=== PATIENT | female | born 1945 | race Caucasian/White ===

== ENCOUNTER 2018-09-19 21:07 | Inpatient (IN) ==
[2018-09-20] MEDS ORDERED: Ondansetron 4 MG/2 ML VIAL IVP PRN (00:16)
[2018-09-20] MEDS: Metoprolol 100 MG TABLET PO SCH ×3 (00:33→20:33)
[2018-09-20] MEDS ORDERED: Acetaminophen IV 1,000 MG/100 ML INFUS..BTL IVPB ONE (01:19)
[2018-09-20] MEDS ORDERED: Naloxone 0.4 MG/ML INJ IVP PRN (05:33)
--- NOTE | 2018-09-20 05:56 | Internal Med History&Physical ---
Date of Encounter: 09/20/18 Time of Encounter: 05:00 Internal Medicine - H&P: HPI Chief complaint: Fall Admitted From: Hospital to Hospital Transfer Plans for Post Hospital Care: Home History of present illness: Ms. Pablo is a 73 year old female with past medical history significant for atrial fibrillation on Coumadin, pacemaker, hypertension, thyroid disease, GERD, osteoporosis, rheumatoid arthritis, urinary incontinence with InterStim system, and depression who presents as hospital transfer from [facility] in [place], [place] following a mechanical fall at home. Patient states she tripped over her shoes and landed on her left hip and had immediate pain. Denies striking her head, loss of consciousness, syncope, or presyncope. Has only been able to bear minimal weight on left lower extremity since fall. Sending ER obtained x-ray of left hip which showed no acute fracture. Also obtained CT of left hip which showed a nondisplaced subcapital fracture of the left femoral neck. Sending ER also obtained an x-ray of her chest which showed a normal chest. Sending ER also obtained a CT of her head which showed no acute intracranial abnormality and mild cerebral atrophy. Sending ER also obtained a CBC, BMP, CKMB, troponin, UA, which were unremarkable. Patient received morphine and fentanyl prior to transfer which she reports improved her pain. Currently denies any pain other than with movement. Currently denies any headache, numbness, tingling, chest pain, shortness of breath, cough, abdominal pain, bowel or bladder changes. Follows regularly with PCP, cardiology, rheumatology, and urology. Past Med Surg Social Fam HX - Past Medical History Medical history: atrial fibrillation, GERD, hypertension, osteoporosis, RA, thyroid disease, other Additional medical history: sick sinus syndrome, Psychiatric history: depression - Past Surgical History Surgical History: appendectomy, hysterectomy, knee replacement, pacemaker/AICD, other Additional surgical history: bilateral foot surgery, left thumb repair, right wrist surgery, bladder surgery, interstim therapy system - Social History Smoking Status: Never smoker Smokeless Tobacco Status: No Alcohol use: none Drug use: none - Family History Mother Hx Family Cardiac Disorders: Yes (heart disease) Hx Family Cancer: Yes (unspecified) Internal Medicine - H&P: Meds Amlodipine Besylate 2.5 mg PO DAILY 02/14/16 [History] Aspirin 81 mg PO DAILY 02/14/16 [History] Azathioprine [Imuran] 50 mg PO TID 02/14/16 [History] BuPROPion SR (12 HR) [Wellbutrin SR] 100 mg PO DAILY 02/14/16 [History] Diltiazem HCl [Cartia Xt] 240 mg PO DAILY 02/14/16 [History] Esomeprazole Magnesium [Nexium] 40 mg PO DAILY 02/14/16 [History] Fluticasone Propionate Nasal [Flonase] 2 spr NS DAILY PRN 02/14/16 [History] Gabapentin [Neurontin] 300 mg PO BID 02/14/16 [History] Leflunomide [Arava] 10 mg PO DAILY 02/14/16 [History] Levothyroxine [Synthroid] 50 mcg PO 0630 02/14/16 [History] Metoprolol [Lopressor] 100 mg PO BID 02/14/16 [History] Nitroglycerin 0.4 mg SL Q5MIN PRN 02/14/16 [History] Ropinirole HCl 2 mg PO HS 02/14/16 [History] TraZODone 50 mg PO HS 02/14/16 [History] Warfarin Sodium [Coumadin] 6 mg PO Q48H 02/14/16 [History] Warfarin [Coumadin] 4 mg PO Q48H 02/14/16 [History] predniSONE [Prednisone] 5 mg PO DAILY 02/14/16 [History] traMADol [Ultram] 50 mg PO Q6HR PRN #15 tablet 02/14/16 [Rx] Allergy/AdvReac Type Severity Reaction Status Date / Time azithromycin [From Zithromax] AdvReac See Verified 07/12/18 13:08 Comments codeine AdvReac See Verified 07/12/18 13:08 Comments dimethicone [From Dermatix] AdvReac See Verified 07/12/18 13:08 Comments levofloxacin [From Levaquin] AdvReac See Verified 07/12/18 13:08 Comments oxycodone [From Percocet] AdvReac See Verified 07/12/18 13:08 Comments Penicillins AdvReac See Verified 07/12/18 13:08 Comments pentazocine [From Talwin] AdvReac See Verified 07/12/18 13:08 Comments propoxyphene [From Darvon] AdvReac See Verified 03/09/19 13:08 Comments silicon dioxide AdvReac See Verified 07/12/18 13:08 [From Dermatix] Comments All Systems PM: A 10-system review of systems was performed and is negative for pertinent findings except as documented above in the HPI. - Constitutional Vitals: Temp Pulse Resp BP Pulse Ox 99.0 F 69 15 162/79 95 09/20/18 05:03 09/20/18 05:03 09/20/18 05:03 09/20/18 05:03 09/20/18 05:03 Exam: General: Alert and oriented. Skin:Normal color, no rash, no lesions. HEENT:Pupils equal, round and reactive. Cardiovascular:Chronic heart murmur noted. No JVD. Pulse regular. Lungs:Normal breath sounds, no wheezes or crackles. Abdomen:Soft, non-tender, no rigidity. Extremities:Chronic RA joint deformities noted. Left hip tender to palpation. Distal PMS intact. Neurological:Normal cognition and motor skills. Pulses:Carotid and radial pulses normal +2. Rest of the physical exam is non contributory. - Assessment and Plan (1) Fall Current Visit: Yes Status: Acute Assessment and plan: Mechanical fall at home. Denies any injury besides left hip. Fall precautions ordered. Qualifiers: Encounter type: initial encounter Qualified Code(s): W19.XXXA - Unspecified fall, initial encounter (2) Fracture of femoral neck, left Current Visit: Yes Status: Acute Assessment and plan: Sending ER left hip xray shows no acute fracture or dislocation. Sending ER left hip CT shows nondisplaced subcapital fracture of the left femoral neck. Sending ER consulted media relations specialist ortho who agrees to see in consult, ortho consult ordered. Pain control with PRN pain medications. NPO. Qualifiers: Encounter type: initial encounter Qualified Code(s): S72.002A - Fracture of unspecified part of neck of left femur, initial encounter for closed fracture (3) Pacemaker Current Visit: Yes Status: Chronic Assessment and plan: Chronic for what she describes as "pauses". Will need cardio clearance for surgery. Cardiology consult ordered, will need called later this a.m. (4) Atrial fibrillation Current Visit: Yes Status: Chronic Assessment and plan: Chronic on coumadin. PT/INR ordered. Qualifiers: Atrial fibrillation type: unspecified Qualified Code(s): I48.91 - Unspecified atrial fibrillation - Time Spent With Patient Total time spent is greater than 50% in coordination of care (as documented) at patient's floor/unit and/or counseling patient:
[2018-09-20] MEDS ORDERED: *HR* FentaNYL (PF) 100 MCG/2 ML VIAL IVP PRN (05:59)
[2018-09-20 06:49] LABS: Basophils % 0.6 %; Eosinophils # 0.1 K/mcL (0.0-0.6); Eosinophils % 2.1 %; Hematocrit 37.5 % (35.3-44.9); Immature Granulocytes % 0.4 % (0-4); Lymphocytes # 0.6 K/mcL (0.6-4.6); Lymphocytes % 11.2 %; Mean Corpuscular Hemoglobin 30.7 pg (28.0-33.3); Mean Corpuscular Volume 95.9 fL (83.0-100.0); Mean Platelet Volume 9.8 fL (9.4-12.4); Monocytes # 0.5 K/mcL (0.0-1.3); Monocytes % 9.8 %; Neutrophils # 3.9 K/mcL (1.6-8.9); Platelet Count 215 K/mcL (140-400); Red Blood Count 3.91 M/mcL (3.82-4.97); Red Cell Distribution Width 14.6 % (11.5-14.5); Segmented Neutrophils % 75.9 %
[2018-09-20 06:54] LABS: INR 1.4; Prothrombin Time 15.5 Seconds (9.4-12.1)
[2018-09-20 07:09] LABS: BUN/Creatinine Ratio 24 (6-26); Blood Urea Nitrogen 11 mg/dL (8-23); Calcium 9.3 mg/dL (8.6-10.3); Carbon Dioxide 29 mEq/L (23-29); Chloride 102 mEq/L (98-107); Glucose 114 mg/dL (70-105); Osmolality,Calculated 286 (280-300); Potassium 3.8 mEq/L (3.5-5.1); Sodium 138 mEq/L (136-145); eGFR For Non-African Americans > 60 (> 60)
[2018-09-20] MEDS ORDERED: *HR* HYDROcodone/Acet 7.5/325 mg TABLET PO PRN (09:58)
[2018-09-20] MEDS ORDERED: traMADol 50 MG TABLET PO PRN (09:58)
[2018-09-20] MEDS ORDERED: *HR* Enoxaparin 60 MG/0.6 ML SYRINGE SQ ONE (10:18)
--- NOTE | 2018-09-20 10:24 | Event Note ---
Date of Encounter: 09/20/18 Time of Encounter: 08:30 Ms Pablo has pmhx Afib on coumadin, PM/AICD w SSS, HTN, thyroid disease, RA on daily steroid and immunosuppressant, thyroid disease. She is admitted with mechanical fall and subsequent left hip fracture requiring surgical intervention. awake, at bedside. She has left hip pain worse with any movement. pain medication makes tolerable. She notes she goes in and out of afib, gets palpitations at time, but none now. no cp, pressure or sob. She denies any presynocpe or syncope. No numbness/tingling in leg or change in warmth of ext. She does not wear O2 at home. She knows she takes 5mg Prednisone for RA daily and lopressor and cardizem, but doesn't know all meds/doses. to go home this morning and get list for staff to update med rec. I have d/w Ortho attending and plan is cardiac eval today and OR with Ortho in am. Pt and family aware. She transferred from [facility] and I have reviewed records sent from hospital BP there 160-170/70-80s. HR 60s. EKG there reviewed and hard to discern P waves, but r-r looks regular, suspect was in rate controlled afib there. No TWI or st dep/elev. 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 No acute ICA CXR neg. CT LLE non displaced fx femoral neck cbc unremarkable, inr 1.4, trop neg, ua neg for infection ekg this morning done and reviewed, sinus rhythm with first degree aVB, no signs of ischemia gen- alert, awake,appears stated age eyes- pupils equal round , no conjunctival pallor cv- reg rate and rhythm, normal s1,s2, no murmurs appreciated, no le edema, no jvd, warm extremities lungs- ctabl, no wheezing, rhonchi or crackles, normal resp effort on o2 nc abd- soft, non tender, non distended, + bs neuro- AAOx3, CN grossly intact, no focal deficits, sensation bl le intact and equal Left Hip fracture -d/w Dr Blanca and plan for OR tomorrow -requires cardiac eval pre op and consultation placed -prn pain control, bed rest Afib on coumadin Subtherapeutic INR 1.4 Currently NSR on tele/exam/ekg, afib rate controlled at OSH -hold warfarin, will give 1mg/kg lovenox this morning, no evening dose, in prep for OR -resume warfarin post op and will order at that time -confirm home meds, BB ordered, confirm cardizem dosing, cont tele, monitor lytes HTN- awaiting home med confirmation, BB ordered, cont to monitor -she should receive BB pre op in am and this is noted in orders RA- on 5mg PO pred daily and continued, she should receive this pre op in am and this is noted in orders, awaiting home meds confirmation from Thyroid disease- awaiting synthroid dose vte ppx lovenox
--- NOTE | 2018-09-20 10:58 | Orthopedic Consult Note ---
Date of Encounter: 09/20/18 Time of Encounter: 10:57 Assessment and Plan (1) Fracture of femoral neck, left Current Visit: Yes Status: Acute After discussing the pros and cons of treatment options including non-operative and operative intervention, the patient has elected to proceed with percutaneous pinning of the left hip for pain control and early ambulation at this time. The risks and benefits of the procedure were fully explained in detail, including but not limited to the risk of infection, neurovascular injury, continued pain or stiffness, failure of surgery, reinjury, or need for additional surgery, DVT, PE, general risks of anesthesia and loss of limb or life. No guarantees were given or implied and all questions were answered. The patient understands all the risks and does wish to proceed with written consent. Surgery will be scheduled in a timely manner pending medical clearance. Qualifiers: Encounter type: initial encounter Fracture type: closed Qualified Code(s): S72.002A - Fracture of unspecified part of neck of left femur, initial encounter for closed fracture History of Present Illness HPI: Ms. Pablo is a 73 year old female with past medical history significant for atrial fibrillation on Coumadin, pacemaker, hypertension, thyroid disease, GERD, osteoporosis, rheumatoid arthritis, urinary incontinence with InterStim system, and depression who presents as hospital transfer from [facility] in [place], [place] following a mechanical fall at home. Patient states she tripped over her shoes and landed on her left hip and had immediate pain. Denies striking her head, loss of consciousness, syncope, or presyncope. XR showed a nondisplaced subcapital fracture of the left femoral neck. Denies any headache, numbness, tingling, chest pain, shortness of breath, or LOC. Transferred for definitive management. Past Med Surg Social Fam HX - Past Medical History Medical history: atrial fibrillation, GERD, hypertension, osteoporosis, RA, thyroid disease, other Additional medical history: sick sinus syndrome, Psychiatric history: depression - Past Surgical History Surgical History: appendectomy, hysterectomy, knee replacement, pacemaker/AICD, other Additional surgical history: bilateral foot surgery, left thumb repair, right wrist surgery, bladder surgery, interstim therapy system - Social History Smoking Status: Never smoker Smokeless Tobacco Status: No Alcohol use: none Drug use: none - Family History Mother Hx Family Cardiac Disorders: Yes (heart disease) Hx Family Cancer: Yes (unspecified) Medications and Allergies Amlodipine Besylate 2.5 mg PO DAILY 02/14/16 [History] Aspirin 81 mg PO DAILY 02/14/16 [History] Azathioprine [Imuran] 50 mg PO TID 02/14/16 [History] BuPROPion SR (12 HR) [Wellbutrin SR] 100 mg PO DAILY 02/14/16 [History] Diltiazem HCl [Cartia Xt] 240 mg PO DAILY 02/14/16 [History] Esomeprazole Magnesium [Nexium] 40 mg PO DAILY 02/14/16 [History] Fluticasone Propionate Nasal [Flonase] 2 spr NS DAILY PRN 02/14/16 [History] Gabapentin [Neurontin] 300 mg PO BID 02/14/16 [History] Leflunomide [Arava] 10 mg PO DAILY 02/14/16 [History] Levothyroxine [Synthroid] 50 mcg PO 0630 02/14/16 [History] Metoprolol [Lopressor] 100 mg PO BID 02/14/16 [History] Nitroglycerin 0.4 mg SL Q5MIN PRN 02/14/16 [History] Ropinirole HCl 2 mg PO HS 02/14/16 [History] TraZODone 50 mg PO HS 02/14/16 [History] Warfarin Sodium [Coumadin] 6 mg PO Q48H 02/14/16 [History] Warfarin [Coumadin] 4 mg PO Q48H 02/14/16 [History] predniSONE [Prednisone] 5 mg PO DAILY 02/14/16 [History] traMADol [Ultram] 50 mg PO Q6HR PRN #15 tablet 02/14/16 [Rx] Allergy/AdvReac Type Severity Reaction Status Date / Time azithromycin [From Zithromax] AdvReac See Verified 07/12/18 13:08 Comments codeine AdvReac See Verified 07/12/18 13:08 Comments dimethicone [From Dermatix] AdvReac See Verified 07/12/18 13:08 Comments levofloxacin [From Levaquin] AdvReac See Verified 07/12/18 13:08 Comments oxycodone [From Percocet] AdvReac See Verified 07/12/18 13:08 Comments Penicillins AdvReac See Verified 07/12/18 13:08 Comments pentazocine [From Talwin] AdvReac See Verified 07/12/18 13:08 Comments propoxyphene [From Darvon] AdvReac See Verified 07/12/18 13:08 Comments silicon dioxide AdvReac See Verified 07/12/18 13:08 [From Dermatix] Comments All Systems Reviewed: The remainder of the systems were reviewed and are negative except as noted in the HPI Physical Exam - Constitutional Vitals: Temp Pulse Resp BP Pulse Ox 98.2 F 65 15 178/79 97 09/20/18 10:27 09/20/18 10:27 09/20/18 10:27 09/20/18 10:27 09/20/18 10:27 Exam: Consult Exam: Constitutional -Vitals reviewed -The patient is well developed and well nourished. -Mood is pleasant. -The patient is well groomed. Psychiatric -The patient is fully alert and oriented x 3. Respiratory: -Respiratory effort normal Abdomen: -Soft abdomen -Non tender -Non distended: Left upper extremity: -No deformities. The overlying skin is intact. No obvious signs of acute trauma. -No tenderness to palpation throughout. -No significant pain with passive motion of the shoulder, elbow, wrist, and fingers within the limits of the bed. -Able to make an "OK" sign, cross the index and long fingers, and extend the th umb. -Sensation grossly intact to light touch throughout the median, radial, and ulnar distributions. -Radial pulse is present; Fingers have good capillary refill. Right upper extremity: -No deformities. The overlying skin is intact. No obvious signs of acute trauma. -No tenderness to palpation throughout. -No significant pain with passive motion of the shoulder, elbow, wrist, and fingers within the limits of the bed. -Able to make an "OK" sign, cross the index and long fingers, and extend the thumb. -Sensation grossly intact to light touch throughout the median, radial, and ulnar distributions. -Radial pulse is present; Fingers have good capillary refill. Left lower extremity: -No deformities. The overlying skin is intact. Tenderness palpation over lateral hip -Pain with logroll and internal rotation. -Able to dorsiflex and plantarflex the ankle and toes. -Sensation is grossly intact to light touch throughout the sural, saphenous, superficial peroneal, and deep peroneal distributions. -Toes have good capillary refill. Right lower extremity: -No deformities. The overlying skin is intact. No obvious signs of acute trauma. -No tenderness to palpation throughout. -No pain with passive motion of the hip, knee, ankle, and toes within the limits of the bed. -No pain with axial loading of the thigh. -Able to dorsiflex and plantarflex the ankle and toes. -Sensation is grossly intact to light touch throughout the sural, saphenous, superficial peroneal, and deep peroneal distributions. -Toes have good capillary refill. Results - Labs Result Diagrams: 09/20/18 05:59 09/20/18 05:59 Labs: Abnormal lab results RDW 14.6 % (11.5-14.5) H 09/20/18 05:59 PT 15.5 Seconds (9.4-12.1) H 09/20/18 05:59 0.46 mg/dL (0.60-1.20) L 09/20/18 05:59 Glucose 114 mg/dL (70-105) H 09/20/18 05:59 H & H 09/20/18 Range/Units 05:59 Hgb 12.0 (11.5-15.4) g/dL Hct 37.5 (35.3-44.9) % All other labs normal. - Diagnostic results Hip x-ray: report reviewed, image reviewed (Valgus impacted left femoral neck fracture) Consult Discharge Plan - Plan Referrals: NONE,PCP [Primary Care Provider] -
[2018-09-20] MEDS: *HR* HYDROcodone/Acet 7.5/325 mg TABLET PO PRN ×3 (11:11→22:18)
[2018-09-20] MEDS: predniSONE 5 MG TABLET PO SCH (11:11)
--- NOTE | 2018-09-20 11:16 | Cardiology Consult Note ---
Date of Encounter: 09/20/18 Time of Encounter: 10:30 Assessment and Plan (1) Fracture of femoral neck, left Current Visit: Yes Status: Acute Per cardiology: -Admitted after fall with fracture. -management per primary and orthopedic services. Qualifiers: Encounter type: initial encounter Fracture type: closed Qualified Code(s): S72.002A - Fracture of unspecified part of neck of left femur, initial encounter for closed fracture (2) Preop cardiovascular exam Current Visit: Yes Status: Acute Cardiology: -Preop risk assessment for orthopedic surgery. -Denies chest pain, shortness of breath, or increased fatigue. -ECG with SR. -TTE 05/2018 with LVEF preserved, mild diastolic dysfunction, mild MR, mild- moderate TR, no wall motion abnormalities. -LHC 2009 with normal coronaries. -Known PAF on coumadin for anticoagulation. -Poor functional capacity. -With co-morbidities and poor functional capacity, patient would be at intermediate risk for having cardiovascular complications in the edward-operative time frame. -Ok to hold coumadin for surgery (no history CVA/DVT/PE). Recommend resuming once ok with orthopedic surgery. (3) Pacemaker Current Visit: Yes Status: Chronic Per cardiology: -Known pacemaker for sick sinus syndrome. -Last device check 04/2018 with normal functioning pacemaker, 96 mode switches (known a.fib). (4) Afib Current Visit: No Status: Chronic Per cardiology: -Known PAF. -ON BB. -Currently SR. -On coumadin in outpatient setting for anticoagulation. -Continue BB. Resume coumadin when ok with orthopedic surgery. Qualifiers: Atrial fibrillation type: paroxysmal Qualified Code(s): I48.0 - Paroxysmal atrial fibrillation Discussion w patient/family: The assessment and plan as outlined above was discussed with the patient who e xpressed understanding and agreement. All questions were answered. Thank you for involving us in the care of your patient. Please call with any questions. Discussed and reviewed with . History of Present Illness Consult date: 09/20/18 Requesting physician: Rhys Mensah Consult reason: preop Chief complaint: fall History of present illness: Ms. Pablo is a 73 year old female with a relevant past medical history of PAF, SSS s/p pacemaker, hypothyroidism, RA, GERD, depression, HTN, anxiety, who presented to [facility] with mechanical fall at home. Patient noted to have hip fracture and cardiology consulted for preop risk assessment. Patient denies chest pain. Denies shortness of breath. Denies increased fatigue. States she does all of the housework at home, however states she would not be able to climb a flight of stairs or walk two city blocks. Past Med Surg Social Fam HX - Past Medical History Attestation: Yes The following information was validated with the patient. Source: patient, old records reviewed Medical history: atrial fibrillation, GERD, hypertension, osteoporosis, RA, thyroid disease, other Additional medical history: sick sinus syndrome, Psychiatric history: depression - Past Surgical History Surgical History: appendectomy, hysterectomy, knee replacement, pacemaker/AICD, other Additional surgical history: bilateral foot surgery, left thumb repair, right wrist surgery, bladder surgery, interstim therapy system - Social History Smoking Status: Never smoker Smokeless Tobacco Status: No Alcohol use: none Drug use: none - Family History Mother Hx Family Cardiac Disorders: Yes (heart disease) Hx Family Cancer: Yes (unspecified) Medications and Allergies Amlodipine Besylate 2.5 mg PO DAILY 02/14/16 [History] Aspirin 81 mg PO DAILY 02/14/16 [History] Azathioprine [Imuran] 50 mg PO TID 02/14/16 [History] BuPROPion SR (12 HR) [Wellbutrin SR] 100 mg PO DAILY 02/14/16 [History] Diltiazem HCl [Cartia Xt] 240 mg PO DAILY 02/14/16 [History] Esomeprazole Magnesium [Nexium] 40 mg PO DAILY 02/14/16 [History] Fluticasone Propionate Nasal [Flonase] 2 spr NS DAILY PRN 02/14/16 [History] Gabapentin [Neurontin] 300 mg PO BID 02/14/16 [History] Leflunomide [Arava] 10 mg PO DAILY 02/14/16 [History] Levothyroxine [Synthroid] 50 mcg PO 0630 02/14/16 [History] Metoprolol [Lopressor] 100 mg PO BID 02/14/16 [History] Nitroglycerin 0.4 mg SL Q5MIN PRN 02/14/16 [History] Ropinirole HCl 2 mg PO HS 02/14/16 [History] TraZODone 50 mg PO HS 02/14/16 [History] Warfarin Sodium [Coumadin] 6 mg PO Q48H 10/11/16 [History] Warfarin [Coumadin] 4 mg PO Q48H 02/14/16 [History] predniSONE [Prednisone] 5 mg PO DAILY 02/14/16 [History] traMADol [Ultram] 50 mg PO Q6HR PRN #15 tablet 02/14/16 [Rx] Allergy/AdvReac Type Severity Reaction Status Date / Time azithromycin [From Zithromax] AdvReac See Verified 07/12/18 13:08 Comments codeine AdvReac See Verified 07/12/18 13:08 Comments dimethicone [From Dermatix] AdvReac See Verified 07/12/18 13:08 Comments levofloxacin [From Levaquin] AdvReac See Verified 07/12/18 13:08 Comments oxycodone [From Percocet] AdvReac See Verified 07/12/18 13:08 Comments Penicillins AdvReac See Verified 07/12/18 13:08 Comments pentazocine [From Talwin] AdvReac See Verified 07/12/18 13:08 Comments propoxyphene [From Darvon] AdvReac See Verified 07/12/18 13:08 Comments silicon dioxide AdvReac See Verified 07/12/18 13:08 [From Dermatix] Comments All Systems Review: The remainder of the systems were reviewed and are negative - Constitutional Constitutional: frequent falls - Cardiovascular Cardiovascular: as per HPI Physical Examination Vital Signs, Last 4 Hours Temp Pulse Resp BP Pulse Ox 09/20/18 10:27 98.2 F 65 15 178/79 97 General: Conversant, No Apparent Distress HEENT: Atraumatic, Normocephaly, Mucus Membranes Moist Neck: No JVD, Normal carotid pulses Cardiac: Reg Rate and Rhythm, Normal S1 and S2, No Murmur Lungs: Normal Breath Sounds, No Wheeze, Rales, Rhonchi Neuro: Alert and responsive, No focal deficits noted Abdomen: Soft, Non-Tender Skin: No rashes noted on visualized skin Musculoskeletal: No Chest Wall Tenderness Extremities: No Clubbing, No Cyanosis, No Edema, Normal Pulses Results 09/20/18 05:59 09/20/18 05:59 Lab Results Active Medications Hydrocodone Bitart/Acetaminophen ([place] 7.5-325 Mg) 1 tab PO Q4H PRN PRN Reason: Severe Pain Stop: 03/22/19 09:59 Last Admin: 09/20/18 11:11 Dose: 1 tab Documented by: Cyclobenzaprine HCl (Flexeril) 5 mg PO TID PRN PRN Reason: spasms Stop: 03/22/19 09:01 Last Admin: 09/20/18 08:45 Dose: 5 mg Documented by: Metoprolol Tartrate (Lopressor) 100 mg PO BID [facility] Stop: 03/22/19 00:20 Last Admin: 09/20/18 08:45 Dose: 100 mg Documented by: Naloxone HCl (Narcan) 0.4 mg IVP Q2MPRN PRN PRN Reason: SEE COMMENTS Stop: 03/22/19 05:34 Ondansetron HCl (Zofran) 4 mg IVP Q6HR PRN; Protocol PRN Reason: Nausea And Vomiting Stop: 03/22/19 00:17 Last Admin: 09/20/18 00:33 Dose: 4 mg Documented by: Prednisone (Prednisone) 5 mg PO DAILY [facility] Stop: 03/22/19 09:31 Last Admin: 09/20/18 11:11 Dose: 5 mg Documented by: Tramadol HCl (Ultram) 50 mg PO QID PRN PRN Reason: Moderate Pain Stop: 03/22/19 09:59 Laboratory Tests 09/20/18 09/20/18 09/20/18 05:59 05:59 05:59 Hgb 12.0 INR 1.4 Creatinine 0.46 L - Imaging and Cardiology Chest Xray: report reviewed Echo: report reviewed - EKG Interpretation EKG results cardiology: personally reviewed (ECG with SR, HR 63.), other (Telemetry reviewed with average HR previous 12 hours noted to be 62, SR.) Consult Discharge Plan - Plan Referrals: NONE,PCP [Primary Care Provider] -
[2018-09-20] MEDS: Diltiazem CD (24hr) 180 MG CAPSULE PO SCH (16:16)
--- NOTE | 2018-09-20 17:38 | Internal Med Progress Note ---
<Jose Marshall - Last Filed: 09/20/18 17:35> Hospitalist Progress Note - Encounter Date of Encounter: 09/20/18 Time of Encounter: 09:33 - Subjective Interval History: Patient seen and examined at bedside this morning. Admitted for left hip fracture after mechanical fall. She reports that she is still in pain and that her current pain medicine does help but does not last long. Denies numbness, tingling, foot pain, chest pains, SOB. - Exam Vitals: Temp Pulse Resp BP Pulse Ox 98.8 F 66 16 181/77 97 09/20/18 15:50 09/20/18 15:50 09/20/18 15:50 09/20/18 15:50 09/20/18 15:50 Exam: Gen.: Vitals noted. No acute distress. AAOx3, resting comfortably in bed. HEENT: PERRL/EOMI, oropharynx clear, Normocephalic, atraumatic, MMM Cardiac: RRR, no murmur, +S1/S2, No BLE edema Pulmonary: CTA bilaterally, no wheezes, rales or rhonchi, equal chest expansion, unlabored breathing Abdomen: soft, nontender, BS noted, no guarding, no palpable HSM Skin: warm and dry, no visible lesions. No visible lesion around hip, no ecchymosis. MSK: ROM intact, no joint swelling noted, gait no assessed while in bed. Non tender calf or clubbing. Distal pulses present Neuro: A&Ox3, moves all extremities, no focal deficits, sensation intact Psych: Appropriate mood and behavior, AOx3 - Assessment and Plan (1) Fracture of femoral neck, left Current Visit: Yes Status: Acute Assessment and Plan: Outside ER left hip xray shows no acute fracture or dislocation. -left hip CT shows nondisplaced subcapital fracture of the left femoral neck. - ortho who agrees to see in consult, ortho consult ordered. - Cardiology consulted for risk stratification, will see today - EKG reviewed without evidence of ischemia. - Patient unsure on how many METS she can achieve at baseline. - Most recent Echo in 05/2017- HFpEF, mild valvular abnormalities Plan - Tenative surgery tomorrow - Pain control with PRN pain medications. - NPO midnight. (2) Fall Current Visit: Yes Status: Acute Assessment and Plan: Mechanical fall at home. Denies any injury besides left hip. Did not hit head No signs of syncope. (3) Atrial fibrillation Current Visit: Yes Status: Chronic Assessment and Plan: paroxysmal on coumadin. s/p ablation in August 2018 INR subtherapeutic at 1.4 this morning Currently rate controlled in 60s Cardiology consulted Plan Continue BB Resume coumadin when OK with ortho Continue to monitor (4) Pacemaker Current Visit: Yes Status: Chronic Assessment and Plan: Chronic for what she describes as "pauses", up to 6 seconds - Dx of sick sinus syndrome - Device check in April 2018 and functioning per Cardiology (5) Rheumatoid arthritis Current Visit: Yes Status: Chronic Assessment and Plan: On home prednisone. Will continue here (6) Hypothyroid Current Visit: Yes Status: Chronic Assessment and Plan: continue home synthroid DVT Prophylaxis: resume coumadin once cleared by ortho Scds - Time Spent with Patient Total time spent is greater than 50% in coordination of care (as documented) at patient's floor/unit and/or counseling patient: Internal Medicine: Result - Labs CBC & Chem 7: 09/20/18 05:59 09/20/18 05:59 Labs: Short CBC 09/20/18 Range/Units 05:59 WBC 5.2 (4.3-11.1) K/mcL Hgb 12.0 (11.5-15.4) g/dL Hct 37.5 (35.3-44.9) % Plt Count 215 (140-400) K/mcL Neutrophils # 3.9 (1.6-8.9) K/mcL BMP 09/20/18 05:59 Sodium 138 Potassium 3.8 Chloride 102 Carbon Dioxide 29 BUN 11 Creatinine 0.46 L Glucose 114 H Calcium 9.3 - ABG Interpretation ABG results: PT/INR, D-dimer PT 15.5 Seconds (9.4-12.1) H 09/20/18 05:59 Consult Discharge Plan - Plan Referrals: NONE,PCP [Primary Care Provider] - <Belkis Piper - Last Filed: 09/20/18 17:48> Hospitalist Progress Note - Encounter Date of Encounter: 09/20/18 - Exam Vitals: Temp Pulse Resp BP Pulse Ox 98.8 F 66 16 181/77 97 09/20/18 15:50 09/20/18 15:50 09/20/18 15:50 09/20/18 15:50 09/20/18 15:50 - Assessment and Plan (1) Fall Current Visit: Yes Status: Acute (2) Fracture of femoral neck, left Current Visit: Yes Status: Acute (3) Atrial fibrillation Current Visit: Yes Status: Chronic (4) Pacemaker Current Visit: Yes Status: Chronic (5) Rheumatoid arthritis Current Visit: Yes Status: Chronic (6) Hypothyroid Current Visit: Yes Status: Chronic - Time Spent with Patient Total time spent is greater than 50% in coordination of care (as documented) at patient's floor/unit and/or counseling patient: Internal Medicine: Result - Labs CBC & Chem 7: 09/20/18 05:59 09/20/18 05:59 Labs: Short CBC 09/20/18 Range/Units 05:59 WBC 5.2 (4.3-11.1) K/mcL Hgb 12.0 (11.5-15.4) g/dL Hct 37.5 (35.3-44.9) % Plt Count 215 (140-400) K/mcL Neutrophils # 3.9 (1.6-8.9) K/mcL BMP 09/20/18 05:59 Sodium 138 Potassium 3.8 Chloride 102 Carbon Dioxide 29 BUN 11 Creatinine 0.46 L Glucose 114 H Calcium 9.3 - ABG Interpretation ABG results: PT/INR, D-dimer PT 15.5 Seconds (9.4-12.1) H 09/20/18 05:59 - Attending Attestation Ms Pablo has pmhx Afib on coumadin, PM/AICD w SSS, HTN, thyroid disease, RA on daily steroid and immunosuppressant, thyroid disease. She is admitted with mechanical fall and subsequent left hip fracture requiring surgical intervention. awake, at bedside. She has left hip pain worse with any movement. pain medication makes tolerable. She notes she goes in and out of afib, gets palpitations at time, but none now. no cp, pressure or sob. She denies any presynocpe or syncope. No numbness/tingling in leg or change in warmth of ext. She does not wear O2 at home. She knows she takes 5mg Prednisone for RA daily and lopressor and cardizem, but doesn't know all meds/doses. to go home this morning and get list for staff to update med rec. I have d/w Ortho attending and plan is cardiac eval today and OR with Ortho in am. Pt and family aware. She transferred from [place] and I have reviewed records sent from hospital BP there 160-170/70-80s. HR 60s. EKG there reviewed and hard to discern P waves, but r-r looks regular, suspect was in rate controlled afib there. No TWI or st dep/elev. 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 No acute ICA CXR neg. CT LLE non displaced fx femoral neck cbc unremarkable, inr 1.4, trop neg, ua neg for infection ekg this morning done and reviewed, sinus rhythm with first degree aVB, no signs of ischemia gen- alert, awake,appears stated age eyes- pupils equal round , no conjunctival pallor cv- reg rate and rhythm, normal s1,s2, no murmurs appreciated, no le edema, no jvd, warm extremities lungs- ctabl, no wheezing, rhonchi or crackles, normal resp effort on o2 nc abd- soft, non tender, non distended, + bs neuro- AAOx3, CN grossly intact, no focal deficits, sensation bl le intact and equal Left Hip fracture -d/w Dr Blanca and plan for OR tomorrow -requires cardiac eval pre op and consultation placed -prn pain control, bed rest Afib on coumadin Subtherapeutic INR 1.4 Currently NSR on tele/exam/ekg, afib rate controlled at OSH -hold warfarin, will give 1mg/kg lovenox this morning, no evening dose, in prep for OR -resume warfarin post op and will order at that time -confirm home meds, BB ordered, confirm cardizem dosing, cont tele, monitor lytes HTN- awaiting home med confirmation, BB ordered, cont to monitor -she should receive BB pre op in am and this is noted in orders RA- on 5mg PO pred daily and continued, she should receive this pre op in am and this is noted in orders, awaiting home meds confirmation from Thyroid disease- awaiting synthroid dose vte ppx lovenox <Jose Marshall - Last Filed: 09/20/18 17:35> (1) Fracture of femoral neck, left Qualifiers: Encounter type: initial encounter Fracture type: closed Qualified Code(s): S72.002A - Fracture of unspecified part of neck of left femur, initial encounter for closed fracture (2) Fall Qualifiers: Encounter type: initial encounter Qualified Code(s): W19.XXXA - Unspecified fall, initial encounter (3) Atrial fibrillation Qualifiers: Atrial fibrillation type: unspecified Qualified Code(s): I48.91 - Unspecified atrial fibrillation (5) Rheumatoid arthritis Qualifiers: Rheumatoid arthritis location: unspecified site Rheumatoid factor presence: unspecified presence Qualified Code(s): M06.9 - Rheumatoid arthritis, unspecified (6) Hypothyroid Qualifiers: Hypothyroidism type: unspecified Qualified Code(s): E03.9 - Hypothyroidism, unspecified <Belkis Piper - Last Filed: 09/20/18 17:48> (1) Fall Qualifiers: Encounter type: initial encounter Qualified Code(s): W19.XXXA - Unspecified fall, initial encounter (2) Fracture of femoral neck, left Qualifiers: Encounter type: initial encounter Fracture type: closed Qualified Code(s): S72.002A - Fracture of unspecified part of neck of left femur, initial encounter for closed fracture (3) Atrial fibrillation Qualifiers: Atrial fibrillation type: unspecified Qualified Code(s): I48.91 - Unspecified atrial fibrillation (5) Rheumatoid arthritis Qualifiers: Rheumatoid arthritis location: unspecified site Rheumatoid factor presence: unspecified presence Qualified Code(s): M06.9 - Rheumatoid arthritis, unspecified (6) Hypothyroid Qualifiers: Hypothyroidism type: unspecified Qualified Code(s): E03.9 - Hypothyroidism, unspecified
[2018-09-20] MEDS ORDERED: traZODone 50 MG TABLET PO SCH (21:00)
[2018-09-21 02:58] LABS: Basophils % 0.7 %; Eosinophils # 0.2 K/mcL (0.0-0.6); Eosinophils % 2.7 %; Hematocrit 42.6 % (35.3-44.9); Immature Granulocytes % 0.7 % (0-4); Lymphocytes # 0.7 K/mcL (0.6-4.6); Lymphocytes % 11.1 %; Mean Corpuscular HGB Conc 31.9 g/dL (31.6-35.5); Mean Corpuscular Hemoglobin 30.7 pg (28.0-33.3); Mean Corpuscular Volume 96.2 fL (83.0-100.0); Mean Platelet Volume 9.9 fL (9.4-12.4); Monocytes # 0.8 K/mcL (0.0-1.3); Monocytes % 13.5 %; Neutrophils # 4.2 K/mcL (1.6-8.9); Platelet Count 227 K/mcL (140-400); Red Blood Count 4.43 M/mcL (3.82-4.97); Red Cell Distribution Width 14.6 % (11.5-14.5); Segmented Neutrophils % 71.3 %
[2018-09-21 03:01] LABS: Hemoglobin 13.6 g/dL (11.5-15.4)
[2018-09-21 03:07] LABS: INR 1.5; Prothrombin Time 16.6 Seconds (9.4-12.1)
[2018-09-21 03:20] LABS: BUN/Creatinine Ratio 19 (6-26); Blood Urea Nitrogen 9 mg/dL (8-23); Calcium 9.2 mg/dL (8.6-10.3); Carbon Dioxide 30 mEq/L (23-29); Chloride 99 mEq/L (98-107); Glucose 113 mg/dL (70-105); Magnesium 1.9 mg/dL (1.6-2.6); Osmolality,Calculated 283 (280-300); Sodium 137 mEq/L (136-145); eGFR For Non-African Americans > 60 (> 60)
--- NOTE | 2018-09-21 07:44 | Anesthesia Evaluation PreOp ---
Date of Encounter: 09/21/18 Time of Encounter: 08:22 - Past History Planned Operation: Left hip percutaneous pinning Cardiac History: HTN, Arrhythmia (A fib - on coumadin for CVA prevention; SSS), Pacemaker/ICD (pacemaker for SSS - last interrogated - no issues, placed around 10 years ago), Other (prior to hip fracture, patient could walk up a flight of stairs) Pulmonary History: Denies Any Significant HX SENIOR PROJECT ACCOUNTANT History: Other (depression) Other Medical History: Thyroid, GERD, Other (Rheumatoid arthritis - takes prednisone 5 mg daily) Anesthesia History: Past Anesthesia (appendectomy, hysterectomy, knee replacement, bilateral foot surgery, left thumb repair, right wrist surgery, bladder surgery, interstim), Problems (nausea) Alcohol Use: none Drug use: none Medications and Allergies Azathioprine [Imuran] 50 mg PO TID 02/14/16 [History] Fluticasone Propionate Nasal [Flonase] 1 spray NS DAILY 02/14/16 [History] Leflunomide [Arava] 10 mg PO DAILY 02/14/16 [History] Levothyroxine [Synthroid] 50 mcg PO QAM 02/14/16 [History] Nitroglycerin 0.4 mg SL Q5MIN PRN 02/14/16 [History] Warfarin [Coumadin] 6 mg PO SUTUTH 02/14/16 [History] Alendronate Sodium 70 mg PO SA 09/20/18 [History] Diltiazem HCl [Tiazac] 360 mg PO DAILY 09/20/18 [History] Metoprolol Tartrate 100 mg PO BID 09/20/18 [History] Omeprazole [PriLOSEC] 20 mg PO DAILY 09/20/18 [History] Pramipexole [Mirapex] 0.25 mg PO HS 09/20/18 [History] Trazodone HCl 50 mg PO HS 09/20/18 [History] Warfarin Sodium 4 mg PO MOWEFRSA 09/20/18 [History] predniSONE [PredniSONE] 5 mg PO DAILY 09/20/18 [History] Allergy/AdvReac Type Severity Reaction Status Date / Time azithromycin [From Zithromax] AdvReac See Verified 07/12/18 13:08 Comments codeine AdvReac See Verified 07/12/18 13:08 Comments dimethicone [From Dermatix] AdvReac See Verified 07/12/18 13:08 Comments levofloxacin [From Levaquin] AdvReac See Verified 07/12/18 13:08 Comments oxycodone [From Percocet] AdvReac See Verified 07/12/18 13:08 Comments Penicillins AdvReac See Verified 07/12/18 13:08 Comments pentazocine [From Talwin] AdvReac See Verified 07/12/18 13:08 Comments propoxyphene [From Darvon] AdvReac See Verified 07/12/18 13:08 Comments silicon dioxide AdvReac See Verified 07/12/18 13:08 [From Dermatix] Comments - Meds/Allergy Pre-op Review Medications Reviewed: Yes Allergies Reviewed: Yes Beta Blockers on Current Med List: Yes (metoprolol) If Beta Blockers taken, Date/Time (Last Dose taken): 09-20-18 metoprolol at 20:33 Anesthesia Results - Labs 09/21/18 02:18 09/21/18 02:18 - Imaging EKG: report reviewed, image reviewed (SINUS RHYTHM Left axis deviation POSSIBLE ANTERIOR MYOCARDIAL INFARCTION, PROBABLY OLD) Additional studies: TTE: Impressions: LVEF 65-70%. Normal LV chamber size, wall thickness and systolic function. Mild left ventricular diastolic dysfunction. Normal right ventricular structure and function. Mild mitral regurgitation. Mild-moderate tricuspid regurgitation. No pulmonary hypertension. Anesthesia Exam Last Vital Signs Temp 98.9 F 09/21/18 07:10 Pulse 70 09/21/18 07:10 Resp 16 09/21/18 07:10 BP 142/77 09/21/18 07:10 Pulse Ox 98 09/21/18 07:10 Weight: 58 kg NPO (# of Hours): > 8 hrs - HEENT Pupil (Motor): Pupils equal, EOMI Mallampati: III Teeth: Normal Oral Opening: Greater than 3 - SENIOR PROJECT ACCOUNTANT LOC: Oriented - Cardiac Rhythm: Regular Murmur: None - Pulmonary Breath Sounds: bilateral Clear Respiratory Effort: Symmetrical Anesthesia Assess/Plan ASA Score: 3 Level of consciousness: Cooperative Anesthetic Plan: General, Precautions (stress-dose steroids, emend for nausea prevention) Monitoring Plan: Standard Monitors Recovery Plan: PACU
[2018-09-21] MEDS: Metoprolol 100 MG TABLET PO SCH ×2 (07:51→19:59)
[2018-09-21] MEDS: Diltiazem CD (24hr) 180 MG CAPSULE PO SCH (07:51)
[2018-09-21] MEDS: predniSONE 5 MG TABLET PO SCH (07:51)
[2018-09-21] MEDS ORDERED: Hydrocortisone Sodium Succ 100 MG/2 ML VIAL ONE (08:18)
[2018-09-21] MEDS ORDERED: Clindamycin 600 MG/50 ML 600 MG/50 ML IV.SOLN IVPB ONE ×2 (08:23→08:58)
[2018-09-21] MEDS ORDERED: *HR* Propofol 200 MG/20 ML VIAL IVP ONE (08:58)
[2018-09-21] MEDS ORDERED: Lidocaine -MPF 2% 2 ML VIAL ONE (08:58)
[2018-09-21] MEDS ORDERED: Ketorolac 15 MG/ML VIAL IVP ONE (08:58)
[2018-09-21] MEDS ORDERED: *HR* Succinylcholine 200 MG/10 ML VIAL IVP ONE (08:58)
[2018-09-21] MEDS ORDERED: EPHEDrine 50 MG/ML VIAL ONE (08:58)
[2018-09-21] MEDS ORDERED: *HR* Promethazine 25 MG/ML VIAL IVP PRN (08:58)
[2018-09-21] MEDS ORDERED: *HR* FentaNYL (PF) 100 MCG/2 ML VIAL IVP PRN (08:58)
[2018-09-21] MEDS ORDERED: Dexamethasone 4 MG/ML VIAL ONE (08:58)
[2018-09-21] MEDS ORDERED: *HR* Rocuronium Bromide 50 MG/5 ML VIAL ONE (08:58)
[2018-09-21] MEDS ORDERED: Ondansetron 4 MG/2 ML VIAL ONE (08:58)
[2018-09-21] MEDS ORDERED: *HR* PHENYLEPHRINE 1,000 MCG/10 ML SYRINGE IVP ONE (08:59)
[2018-09-21] MEDS ORDERED: Fluticasone Propionate Nasal 50 MCG/SPRAY BOTTLE NS SCH (09:00)
--- NOTE | 2018-09-21 09:28 | Orthopedic Operative Note ---
Date of procedure: 09/21/18 Procedure: Procedure: Left hip percutaneous pinning Preoperative Diagnosis: Left hip valgus impacted subcapital femoral neck fracture Postoperative Diagnosis: Same Surgeon: Emanuel Kolb MD Anesthesia: General EBL: 20 cc Complications: None Components used: Synthes 7.3 mm partially threaded cannulated screws INDICATIONS: This is a 73 yo F who sustained a mechanical fall onto her left hip. She had pain in the hip and inability to ambulate, and presented to the ED and was diagnosed with a valgus impacted subcapital fracture of the left femoral neck. She was admitted for definitive management. Surgical fixation was recommended to prevent completion of the fracture and allow for early mobilization and pain control. After discussing the procedure at length, the patient elected for operative management with a percutaneous pinning of the left hip. The risks and benefits of the procedure were fully explained. Those risks include but are not limited to, infection, neurovascular injury, continued pain, arthritis, stiffness, nonunion, AVN, further injury, need for further surgery, DVT, PE, loss of limb, and loss of life. The patient understood all of these risks and wished to proceed. Informed consent was obtained. No guarantees were stated or implied. OPERATIVE REPORT: After being cleared medically by the hospitalist team, the patient was identified in the holding area. The left lower extremity was marked, the patient was taken to the operating room and general anesthetic was administered on the hospital bed. The patients head, neck and airway were protected by anesthesia through the case. The patient was then transferred to the fracture table and placed in the supine position with a well padded perineal post. All bony prominences were well padded. The left leg was attached to the traction device on the fracture bed. The right leg was then placed in a well leg almanza and positioned out of the way of fluoroscopy. We then obtained fluoroscopic images in AP and lateral planes confirming fracture reduction and alignment. The left lower extremity was then prepped and draped in the normal manner. Preoperative antibiotics were given prior to incision. A surgical time out protocol was then performed. A guidepin was percutaneously placed centrally and slightly inferior across the femoral neck up to the head, ensuring no penetration of the femoral head. A 3 cm incision was then made proximally from the guidepin, and 2 more guidepins were placed, proximal and anterior and posterior to the first pin. Placement of the guidepins were confirmed on AP and lateral fluoroscopy. The appropriate screw lengths were measured, the lateral cortex was opened with a drill and then three 7.3 mm cannulated screws were placed across the fracture site in an inverted triangle pattern. At this point final fluoroscopic images of the left hip in both AP and lateral planes were obtained. The wound was thoroughly irrigated and closed the subcutaneous tissues with 2-0 stratafix. Skin was closed with 3- 0 stratafix. We then placed sterile dressings the patient was awoken by anesthesia and transferred to PACU in stable condition. Patient tolerated the procedure well and there were no complications. Postop plan: The patient will be weight bearing as tolerated postoperatively, continue on DVT prophylaxis per the hospitalist. Was there an carpenter assistant installer present: No Estimated blood loss (cc): 20
[2018-09-21] MEDS ORDERED: traMADol 50 MG TABLET PO PRN (09:53)
[2018-09-21] MEDS ORDERED: *HR* Warfarin 4 MG TABLET PO SCH ×2 (09:53→18:00)
[2018-09-21] MEDS ORDERED: Naloxone 0.4 MG/ML INJ IVP PRN (09:53)
[2018-09-21] MEDS ORDERED: Nitroglycerin 0.4 MG TAB.SUBL SL PRN (09:53)
--- NOTE | 2018-09-21 10:08 | Anesthesia Evaluation Post Op ---
Date of Encounter: 09/21/18 Time of Encounter: 10:08 - Vital Signs Vital Signs: Last Vital Signs Temp 97.9 F 09/21/18 09:59 Pulse 60 09/21/18 09:59 Resp 16 09/21/18 09:59 BP 147/77 09/21/18 09:59 Pulse Ox 95 09/21/18 09:59 - Lungs Lungs: Clear Ascult./Percussion - Airway Airway: Non-obstructed - Cardiovascular Regular Rate - Mental Status Mental Status: Alert & Oriented, Answers Appropriately - Pain Pain Scale: 1 - Nausea Vomiting Nausea Vomiting: Not Present - Hydration Hydration: NPO - Discharge PostOp Status: Transfer Patient to floor
[2018-09-21] MEDS: Ondansetron 4 MG/2 ML VIAL IVP PRN ×2 (11:43→17:32)
--- NOTE | 2018-09-21 13:18 | Internal Med Progress Note ---
<Belkis Piper - Last Filed: 09/21/18 15:54> Hospitalist Progress Note - Encounter Date of Encounter: 09/21/18 - Exam Vitals: Temp Pulse Resp BP Pulse Ox 98.2 F 60 16 144/78 93 09/21/18 13:37 09/21/18 13:37 09/21/18 13:37 09/21/18 13:37 09/21/18 13:37 - Assessment and Plan (1) Fall Current Visit: Yes Status: Acute (2) Fracture of femoral neck, left Current Visit: Yes Status: Acute (3) Atrial fibrillation Current Visit: Yes Status: Chronic (4) Pacemaker Current Visit: Yes Status: Chronic (5) Rheumatoid arthritis Current Visit: Yes Status: Chronic (6) Hypothyroid Current Visit: Yes Status: Chronic - Time Spent with Patient Total time spent is greater than 50% in coordination of care (as documented) at patient's floor/unit and/or counseling patient: Internal Medicine: Result - Labs CBC & Chem 7: 09/21/18 02:18 09/21/18 02:18 Labs: Short CBC 09/21/18 Range/Units 02:18 WBC 5.9 (4.3-11.1) K/mcL Hgb 13.6 D (11.5-15.4) g/dL Hct 42.6 (35.3-44.9) % Plt Count 227 (140-400) K/mcL Neutrophils # 4.2 (1.6-8.9) K/mcL BMP 09/21/18 02:18 Sodium 137 Potassium 4.0 Chloride 99 Carbon Dioxide 30 H BUN 9 Creatinine 0.47 L Glucose 113 H Calcium 9.2 - ABG Interpretation ABG results: PT/INR, D-dimer PT 16.6 Seconds (9.4-12.1) H 09/21/18 02:18 - Impressions Impressions Fluoroscopy 09/21/18 00:00 IMPRESSION: Intraprocedural fluoroscopic spot images as above. See separate procedure report for more information. D/ / Dale Solares MD / Dale Solares MD Interpreting Provider: Dale Solares MD Consult Discharge Plan - Plan Referrals: NONE,PCP [Primary Care Provider] - - Attending Attestation I examined this patient and my medical decision-making was reviewed with the Resident Physician Dr Marshall. I agree with the documented findings, disposition and treatment plan as described except to the extent set forth below. Ms Pablo is admitted with hip fracture requiring surgical intervention. awake, pain tolerable, going to OR today. no cp or sob. gen- alert, awake,appears stated age eyes- pupils equal round cv- reg rate and rhythm, no le edema lungs- no wheezing, normal resp effort on o2 nc msk- LLE shortened and rotated neuro- AAOx3, Left Hip fracture s/p hip pinning 09/21 -OR today -card evaluated pre operatively -WBAT -prn pain control,pt/ot/sw Afib on coumadin Subtherapeutic INR 1.5 -lovenox bridge to therapeutic warfarin post op with hgb monitoring -cont home BB + cardizem HTN-stable, cont home meds RA- on 5mg PO pred daily and continued further diagnoses and plan as noted by resident <Jose Marshall - Last Filed: 09/21/18 16:29> Hospitalist Progress Note - Encounter Date of Encounter: 09/21/18 Time of Encounter: 16:26 - Subjective Interval History: Patient seen and examined at bedside this morning. She states that overall, she is doing well. Pain is controlled. She is scheduled for surgery this morning. No chest pains, SOB, nausea, vomiting. - Exam Vitals: Temp Pulse Resp BP Pulse Ox 98.2 F 60 14 144/77 94 09/21/18 11:42 09/21/18 11:42 09/21/18 11:42 09/21/18 11:42 09/21/18 11:42 Exam: Gen.: Vitals noted. No acute distress. AAOx3, resting comfortably in bed. HEENT: PERRL/EOMI, oropharynx clear, Normocephalic, atraumatic, MMM Cardiac: RRR, no murmur, +S1/S2, No BLE edema Pulmonary: CTA bilaterally, no wheezes, rales or rhonchi, equal chest expansion, unlabored breathing Abdomen: soft, nontender, BS noted, no guarding, no palpable HSM Skin: warm and dry, no visible lesions. No visible lesion around hip, no ecchymosis. MSK: ROM intact, no joint swelling noted, gait no assessed while in bed. Non tender calf or clubbing. Distal pulses present Neuro: A&Ox3, moves all extremities, no focal deficits, sensation intact Psych: Appropriate mood and behavior, AOx3 - Assessment and Plan (1) Fracture of femoral neck, left Current Visit: Yes Status: Acute Assessment and Plan: Outside ER left hip xray shows no acute fracture or dislocation. -left hip CT shows nondisplaced subcapital fracture of the left femoral neck. - ortho who agrees to see in consult, ortho consult ordered. - Cardiology consulted for risk stratification, acceptable risk - EKG reviewed without evidence of ischemia. - Patient unsure on how many METS she can achieve at baseline. - Most recent Echo in 05/2017- HFpEF, mild valvular abnormalities Plan - Tenative surgery this morning - Pain control with PRN pain medications. - INR 2-3 when OK with surgery. Will start lovenox this evening (2) Fall Current Visit: Yes Status: Acute Assessment and Plan: Mechanical fall at home. Denies any injury besides left hip. Did not hit head No signs of syncope. (3) Atrial fibrillation Current Visit: Yes Status: Chronic Assessment and Plan: paroxysmal on coumadin. s/p ablation in August 2018 INR subtherapeutic at 1.4 on admission Currently rate controlled in 60s Cardiology consulted Plan Continue BB Resume coumadin when OK with ortho start lovenox Continue to monitor (4) Pacemaker Current Visit: Yes Status: Chronic Assessment and Plan: Chronic for what she describes as "pauses", up to 6 seconds - Dx of sick sinus syndrome - Device check in April 2018 and functioning per Cardiology (5) Rheumatoid arthritis Current Visit: Yes Status: Chronic Assessment and Plan: On home prednisone. Will continue here (6) Hypothyroid Current Visit: Yes Status: Chronic Assessment and Plan: continue home synthroid DVT Prophylaxis: resume coumadin once cleared by ortho lovenox - Time Spent with Patient Total time spent is greater than 50% in coordination of care (as documented) at patient's floor/unit and/or counseling patient: Internal Medicine: Result - Labs CBC & Chem 7: 09/21/18 02:18 09/21/18 02:18 Labs: Short CBC 09/21/18 Range/Units 02:18 WBC 5.9 (4.3-11.1) K/mcL Hgb 13.6 D (11.5-15.4) g/dL Hct 42.6 (35.3-44.9) % Plt Count 227 (140-400) K/mcL Neutrophils # 4.2 (1.6-8.9) K/mcL BMP 09/21/18 02:18 Sodium 137 Potassium 4.0 Chloride 99 Carbon Dioxide 30 H BUN 9 Creatinine 0.47 L Glucose 113 H Calcium 9.2 - ABG Interpretation ABG results: PT/INR, D-dimer PT 16.6 Seconds (9.4-12.1) H 09/21/18 02:18 - Impressions Impressions Fluoroscopy 09/21/18 00:00 IMPRESSION: Intraprocedural fluoroscopic spot images as above. See separate procedure report for more information. D/ / Dale Solares MD / Dale Solares MD Interpreting Provider: Dale Solares MD <Belkis Piper - Last Filed: 09/21/18 15:54> (1) Fall Qualifiers: Encounter type: initial encounter Qualified Code(s): W19.XXXA - Unspecified fall, initial encounter (2) Fracture of femoral neck, left Qualifiers: Encounter type: initial encounter Fracture type: closed Qualified Code(s): S72.002A - Fracture of unspecified part of neck of left femur, initial encounter for closed fracture (3) Atrial fibrillation Qualifiers: Atrial fibrillation type: unspecified Qualified Code(s): I48.91 - Unspecified atrial fibrillation (5) Rheumatoid arthritis Qualifiers: Rheumatoid arthritis location: unspecified site Rheumatoid factor presence: unspecified presence Qualified Code(s): M06.9 - Rheumatoid arthritis, unspecified (6) Hypothyroid Qualifiers: Hypothyroidism type: unspecified Qualified Code(s): E03.9 - Hypothyroidism, unspecified <Jose Marshall - Last Filed: 09/21/18 16:29> (1) Fracture of femoral neck, left Qualifiers: Encounter type: initial encounter Fracture type: closed Qualified Code(s): S72.002A - Fracture of unspecified part of neck of left femur, initial encounter for closed fracture (2) Fall Qualifiers: Encounter type: initial encounter Qualified Code(s): W19.XXXA - Unspecified fall, initial encounter (3) Atrial fibrillation Qualifiers: Atrial fibrillation type: unspecified Qualified Code(s): I48.91 - Unspecified atrial fibrillation (5) Rheumatoid arthritis Qualifiers: Rheumatoid arthritis location: unspecified site Rheumatoid factor presence: unspecified presence Qualified Code(s): M06.9 - Rheumatoid arthritis, unspecified (6) Hypothyroid Qualifiers: Hypothyroidism type: unspecified Qualified Code(s): E03.9 - Hypothyroidism, unspecified
[2018-09-21] MEDS: *HR* HYDROcodone/Acet 7.5/325 mg TABLET PO PRN ×2 (13:56→20:04)
[2018-09-21] MEDS: *HR* Enoxaparin 30 MG/0.3 ML SYRINGE SQ SCH (17:32)
[2018-09-21] MEDS: Clindamycin 900 MG/50 ML 900 MG/50 ML IV.SOLN IVPB SCH (17:34)
[2018-09-21] MEDS ORDERED: Warfarin perPT PO PRN (18:00)
[2018-09-21] MEDS: traZODone 50 MG TABLET PO SCH (19:59)
[2018-09-21] MEDS ORDERED: Metoprolol 100 MG TABLET PO SCH (21:00)
[2018-09-22] MEDS: Clindamycin 900 MG/50 ML 900 MG/50 ML IV.SOLN IVPB SCH (00:58)
[2018-09-22 02:47] LABS: Basophils % 0.2 %; Hematocrit 39.9 % (35.3-44.9); Immature Granulocytes % 0.4 % (0-4); Lymphocytes # 0.1 K/mcL (0.6-4.6); Lymphocytes % 2.5 %; Mean Corpuscular HGB Conc 32.6 g/dL (31.6-35.5); Mean Platelet Volume 9.7 fL (9.4-12.4); Monocytes # 0.3 K/mcL (0.0-1.3); Monocytes % 5.9 %; Neutrophils # 5.1 K/mcL (1.6-8.9); Platelet Count 216 K/mcL (140-400); Red Cell Distribution Width 14.4 % (11.5-14.5)
[2018-09-22 02:55] LABS: INR 1.5; Prothrombin Time 16.6 Seconds (9.4-12.1)
[2018-09-22 03:06] LABS: BUN/Creatinine Ratio 29 (6-26); Blood Urea Nitrogen 12 mg/dL (8-23); Calcium 9.5 mg/dL (8.6-10.3); Carbon Dioxide 30 mEq/L (23-29); Chloride 100 mEq/L (98-107); Glucose 153 mg/dL (70-105); Osmolality,Calculated 289 (280-300); Potassium 4.4 mEq/L (3.5-5.1); Sodium 138 mEq/L (136-145); eGFR For Non-African Americans > 60 (> 60)
[2018-09-22 03:11] LABS: Platelet Estimate Normal (Normal)
[2018-09-22] MEDS: *HR* Enoxaparin 30 MG/0.3 ML SYRINGE SQ SCH ×2 (06:13→17:35)
[2018-09-22] MEDS ORDERED: Leflunomide [Arava] 10 MG PO SCH (09:00)
[2018-09-22] MEDS ORDERED: predniSONE 5 MG TABLET PO SCH (09:00)
[2018-09-22] MEDS: *HR* HYDROcodone/Acet 7.5/325 mg TABLET PO PRN (09:13)
[2018-09-22] MEDS: Metoprolol 100 MG TABLET PO SCH ×2 (09:14→20:32)
[2018-09-22] MEDS: Leflunomide [Arava] 10 MG PO SCH (09:14)
[2018-09-22] MEDS: Diltiazem CD (24hr) 180 MG CAPSULE PO SCH (09:14)
[2018-09-22] MEDS: Fluticasone Propionate Nasal 50 MCG/SPRAY BOTTLE NS SCH (09:14)
[2018-09-22] MEDS: predniSONE 5 MG TABLET PO SCH (09:14)
[2018-09-22] MEDS ORDERED: *HR* Warfarin 4 MG TABLET PO SCH ×2 (09:31→18:00)
--- NOTE | 2018-09-22 13:26 | Orthopedics Progress Note ---
Date of Encounter: 09/22/18 Time of Encounter: 13:25 - Assessment and Plan (1) Fracture of femoral neck, left Current Visit: Yes Status: Acute Qualifiers: Encounter type: initial encounter Fracture type: closed Qualified Code(s): S72.002A - Fracture of unspecified part of neck of left femur, initial encounter for closed fracture Subjective Interval history: No overnight issues. Pain is controlled. No nausea/vomiting. No CP/SOB. Vitals reviewed Extremity exam: Dressing clean, dry and intact No erythema or drainage Distally neurovascularly intact to motor/sensory exam No calf pain or tenderness s/p L hip perc pinning Continue current management PO pain and nausea control Up with PT Discharge planning - f/u in 2 weeks after d/c Objective Vital signs: Vital Signs Temp Pulse Resp BP Pulse Ox 09/22/18 10:31 98.2 F 60 15 136/86 93 09/22/18 08:00 96 09/22/18 06:44 97.7 F 60 15 143/76 96 09/22/18 02:53 97.3 F L 60 12 118/67 95 09/22/18 00:10 97.7 F 60 14 131/81 98 09/21/18 18:43 97.7 F 60 15 123/71 95 09/21/18 13:37 98.2 F 60 16 144/78 93 Intake and Output 09/21/18 09/22/18 09/22/18 23:59 07:59 15:59 Intake Total 400 / 454 150 / 390 240 / 390 Output Total 750 / 1095 850 / 850 Balance -350 / -641 -700 / -460 240 / -460 Intake: IV Fluids 50 / 104 Cleocin Premix 900 MG/50 ML 900 50 / 50 mg In 50 ml @ 50 mls/hr IVPB Q8HR LONNIE Rx#:[id number] Oral 350 / 350 150 / 390 240 / 390 Output: Catheter 750 / 1075 850 / 850 Other: Meal Dinner Breakfast Percent of Meal Consumed 5% 60% # Voids 1 Weight 59.18 kg Patient Weight 09/22/18 23:59 Weight 59.18 kg - Labs CBC & BMP: 09/22/18 02:24 09/22/18 02:24 Labs: Abnormal lab results RDW 14.6 % (11.5-14.5) H 09/21/18 02:18 0.1 K/mcL (0.6-4.6) L 09/22/18 02:24 PT 16.6 Seconds (9.4-12.1) H 09/22/18 02:24 Carbon Dioxide 30 mEq/L (23-29) H 09/22/18 02:24 0.42 mg/dL (0.60-1.20) L 09/22/18 02:24 29 (6-26) H 09/22/18 02:24 Glucose 153 mg/dL (70-105) H 09/22/18 02:24 - VTE Documentation of Mechanical Device: Intermittent pneumatic compression device Consult Discharge Plan - Plan Referrals: NONE,PCP [Primary Care Provider] -
--- NOTE | 2018-09-22 14:49 | Internal Med Progress Note ---
<Jose Marshall - Last Filed: 09/22/18 14:47> Hospitalist Progress Note - Encounter Date of Encounter: 09/22/18 Time of Encounter: 09:25 - Subjective Interval History: Patient was seen and examined bedside this morning. States that her surgery yesterday went well without complications. Her hip is a little sore with moveme nt otherwise pain is well controlled. Denies any chest pain, shortness breath, fevers, chills. She has not noticed any warmth, swelling, drainage from her hip. - Exam Vitals: Temp Pulse Resp BP Pulse Ox 98.2 F 60 15 136/86 93 09/22/18 10:31 09/22/18 10:31 09/22/18 10:31 09/22/18 10:31 09/22/18 10:31 Exam: Gen.: Vitals noted. No acute distress. AAOx3, resting comfortably in bed. HEENT: PERRL/EOMI, oropharynx clear, Normocephalic, atraumatic, MMM Cardiac: RRR, no murmur, +S1/S2, No BLE edema Pulmonary: CTA bilaterally, no wheezes, rales or rhonchi, equal chest expansion, unlabored breathing Abdomen: soft, nontender, BS noted, no guarding, no palpable HSM Skin: warm and dry, no visible lesions. No visible lesion around hip, no ecchymosis. Incision is clean and dry with no obvious areas of drainage, bleeding. MSK: ROM intact, no joint swelling noted, gait no assessed while in bed. Non tender calf or clubbing. Distal pulses present Neuro: A&Ox3, moves all extremities, no focal deficits, sensation intact Psych: Appropriate mood and behavior, AOx3 - Assessment and Plan (1) Fracture of femoral neck, left Current Visit: Yes Status: Acute Assessment and Plan: Outside ER left hip xray shows no acute fracture or dislocation. -left hip CT shows nondisplaced subcapital fracture of the left femoral neck. - Postoperative day #1 from left hip percutaneous pinning. - ortho who agrees to see in consult - Cardiology consulted for risk stratification, acceptable risk - EKG reviewed without evidence of ischemia. - Patient unsure on how many METS she can achieve at baseline. - Most recent Echo in 05/2017- HFpEF, mild valvular abnormalities Plan - Tolerate surgery well, PT/OT to evaluate - Likely pending placement to rehabilitation - Pain control with PRN pain medications. - INR 2-3 when OK with surgery. Will continue lovenox this evening - Pharmacy to dose Coumadin (2) Fall Current Visit: Yes Status: Acute Assessment and Plan: Mechanical fall at home. Denies any injury besides left hip. Did not hit head No signs of syncope. (3) Atrial fibrillation Current Visit: Yes Status: Chronic Assessment and Plan: paroxysmal on coumadin. s/p ablation in August 2018 INR subtherapeutic at 1.4 on admission, 1.6 this morning Currently rate controlled in 60s Cardiology consulted Plan Continue BB Resume coumadin when OK with ortho- we will restart tonight and bridge with Lovenox Continue lovenox at therapeutic dose Continue to monitor (4) Pacemaker Current Visit: Yes Status: Chronic Assessment and Plan: Chronic for what she describes as "pauses", up to 6 seconds - Dx of sick sinus syndrome - Device check in April 2018 and functioning per Cardiology (5) Rheumatoid arthritis Current Visit: Yes Status: Chronic Assessment and Plan: On home prednisone. Will continue here (6) Hypothyroid Current Visit: Yes Status: Chronic Assessment and Plan: continue home synthroid DVT Prophylaxis: resume coumadin once cleared by ortho lovenox - Time Spent with Patient Total time spent is greater than 50% in coordination of care (as documented) at patient's floor/unit and/or counseling patient: Internal Medicine: Result - Labs CBC & Chem 7: 09/22/18 02:24 09/22/18 02:24 Labs: Short CBC 09/22/18 Range/Units 02:24 WBC 5.6 (4.3-11.1) K/mcL Hgb 13.0 (11.5-15.4) g/dL Hct 39.9 (35.3-44.9) % Plt Count 216 (140-400) K/mcL Neutrophils # 5.1 (1.6-8.9) K/mcL BMP 09/22/18 02:24 Sodium 138 Potassium 4.4 Chloride 100 Carbon Dioxide 30 H BUN 12 Creatinine 0.42 L Glucose 153 H Calcium 9.5 - ABG Interpretation ABG results: PT/INR, D-dimer PT 16.6 Seconds (9.4-12.1) H 09/22/18 02:24 - VTE Documentation of Mechanical Device: Intermittent pneumatic compression device Consult Discharge Plan - Plan Referrals: NONE,PCP [Primary Care Provider] - <Belkis Piper - Last Filed: 09/22/18 14:59> Hospitalist Progress Note - Encounter Date of Encounter: 09/22/18 - Exam Vitals: Temp Pulse Resp BP Pulse Ox 98.2 F 60 15 136/86 93 09/22/18 10:31 09/22/18 10:31 09/22/18 10:31 09/22/18 10:31 09/22/18 10:31 - Assessment and Plan (1) Fall Current Visit: Yes Status: Acute (2) Fracture of femoral neck, left Current Visit: Yes Status: Acute (3) Atrial fibrillation Current Visit: Yes Status: Chronic (4) Pacemaker Current Visit: Yes Status: Chronic (5) Rheumatoid arthritis Current Visit: Yes Status: Chronic (6) Hypothyroid Current Visit: Yes Status: Chronic - Time Spent with Patient Total time spent is greater than 50% in coordination of care (as documented) at patient's floor/unit and/or counseling patient: Internal Medicine: Result - Labs CBC & Chem 7: 09/22/18 02:24 09/22/18 02:24 Labs: Short CBC 09/22/18 Range/Units 02:24 WBC 5.6 (4.3-11.1) K/mcL Hgb 13.0 (11.5-15.4) g/dL Hct 39.9 (35.3-44.9) % Plt Count 216 (140-400) K/mcL Neutrophils # 5.1 (1.6-8.9) K/mcL BMP 09/22/18 02:24 Sodium 138 Potassium 4.4 Chloride 100 Carbon Dioxide 30 H BUN 12 Creatinine 0.42 L Glucose 153 H Calcium 9.5 - ABG Interpretation ABG results: PT/INR, D-dimer PT 16.6 Seconds (9.4-12.1) H 09/22/18 02:24 - Attending Attestation I examined this patient and my medical decision-making was reviewed with the Resident Physician Dr Marshall. I agree with the documented findings, disposition and treatment plan as described except to the extent set forth below. Ms Pablo is admitted with hip fracture requiring surgical intervention. awake, in chair at bedside. Pain greatly improved, tolerable. feeling well. no sob, no leg pain. no difficulty eating/drinking or urinating. + flatus, no bm. gen- alert, awake,appears stated age cv- reg rate and rhythm, no le edema lungs- ctabl, normal resp effort on room air skin- left hip dressing, c/d/i no ecchymosis neuro- AAOx3, Left Hip fracture s/p hip pinning 09/21 -WBAT -prn pain control,pt/ot/sw--anticipate approval for rehab tomorrow Afib on coumadin Subtherapeutic INR 1.5 -lovenox bridge to therapeutic warfarin post op with hgb monitoring -cont home BB + cardizem HTN-stable, cont home meds RA- on 5mg PO pred daily and continued further diagnoses and plan as noted by resident <Jose Marshall - Last Filed: 09/22/18 14:47> (1) Fracture of femoral neck, left Qualifiers: Encounter type: initial encounter Fracture type: closed Qualified Code(s): S72.002A - Fracture of unspecified part of neck of left femur, initial encounter for closed fracture (2) Fall Qualifiers: Encounter type: initial encounter Qualified Code(s): W19.XXXA - Unspecified fall, initial encounter (3) Atrial fibrillation Qualifiers: Atrial fibrillation type: unspecified Qualified Code(s): I48.91 - Unspecified atrial fibrillation (5) Rheumatoid arthritis Qualifiers: Rheumatoid arthritis location: unspecified site Rheumatoid factor presence: unspecified presence Qualified Code(s): M06.9 - Rheumatoid arthritis, unspecified (6) Hypothyroid Qualifiers: Hypothyroidism type: unspecified Qualified Code(s): E03.9 - Hypothyroidism, unspecified <Belkis Piper - Last Filed: 09/22/18 14:59> (1) Fall Qualifiers: Encounter type: initial encounter Qualified Code(s): W19.XXXA - Unspecified fall, initial encounter (2) Fracture of femoral neck, left Qualifiers: Encounter type: initial encounter Fracture type: closed Qualified Code(s): S72.002A - Fracture of unspecified part of neck of left femur, initial encounter for closed fracture (3) Atrial fibrillation Qualifiers: Atrial fibrillation type: unspecified Qualified Code(s): I48.91 - Unspecified atrial fibrillation (5) Rheumatoid arthritis Qualifiers: Rheumatoid arthritis location: unspecified site Rheumatoid factor presence: unspecified presence Qualified Code(s): M06.9 - Rheumatoid arthritis, unspecified (6) Hypothyroid Qualifiers: Hypothyroidism type: unspecified Qualified Code(s): E03.9 - Hypothyroidism, unspecified
--- NOTE | 2018-09-22 17:46 | Electrocardiograph Report ---
[address] [address] Test Date: 2018-09-20 Pat Name: Lay Pablo Department: 114 Room: [facility] Gender: F Telemetry Tech: : [id number] Requested By: Belkis Piper Order Number: [id number] Reading MD: Mark Lopez Measurements Intervals Widen Rate: 60 P: -70 NC: 237 QRS: -32 QRSD: 89 T: 42 QT: 412 QTc: 412 Interpretive Statements ELECTRONIC ATRIAL PACEMAKER MARKED LEFT AXIS DEVIATION Electronically Signed On 09-22-2018 17:44:32 EDT by Mark Lopez
[2018-09-22] MEDS ORDERED: *HR* Warfarin 4 MG TABLET PO ONE (18:00)
[2018-09-22] MEDS: traZODone 50 MG TABLET PO SCH (20:32)
[2018-09-23] MEDS: *HR* HYDROcodone/Acet 7.5/325 mg TABLET PO PRN ×3 (03:25→14:12)
[2018-09-23] MEDS ORDERED: *HR* Enoxaparin 60 MG/0.6 ML SYRINGE SQ SCH (06:00)
[2018-09-23 07:02] LABS: Basophils % 0.2 %; Eosinophils % 0.3 %; Hemoglobin 12.2 g/dL (11.5-15.4); Immature Granulocytes % 0.3 % (0-4); Lymphocytes # 0.5 K/mcL (0.6-4.6); Lymphocytes % 8.5 %; Mean Corpuscular HGB Conc 32.1 g/dL (31.6-35.5); Mean Corpuscular Hemoglobin 30.5 pg (28.0-33.3); Mean Platelet Volume 9.9 fL (9.4-12.4); Monocytes # 0.5 K/mcL (0.0-1.3); Monocytes % 8.7 %; Neutrophils # 4.9 K/mcL (1.6-8.9); Platelet Count 228 K/mcL (140-400); Red Cell Distribution Width 14.5 % (11.5-14.5)
[2018-09-23 07:11] LABS: INR 1.4; Prothrombin Time 15.3 Seconds (9.4-12.1)
--- NOTE | 2018-09-23 07:38 | Discharge Summary ---
<Jose Marshall - Last Filed: 09/23/18 13:35> - NOTES TO OUTPATIENT PROVIDER Notes to Outpatient Provider: Patient admitted for left hip fracture. pre- operative evaluation completed by cardiology. Successful percutaneous pinning performed on 09/21/18. Tolerated well. Bridging lovenox to coudmain. Will need INR check in 2 days. Orders not resulted at time of discharge: Pending orders 09/21/18 XR hip complete LT [XR] Routine 09/24/18 04:00 PT/INR [Prothrombin Time INR] [COAG] AM 0400 09/25/18 04:00 PT/INR [Prothrombin Time INR] [COAG] AM 0400 09/26/18 04:00 PT/INR [Prothrombin Time INR] [COAG] AM 0400 09/27/18 04:00 PT/INR [Prothrombin Time INR] [COAG] AM 0400 Date of Encounter: 09/23/18 Time of Encounter: 12:41 - Discharge Diagnosis (1) Fracture of femoral neck, left Priority: Primary Status: Acute Qualifiers: Encounter type: initial encounter Fracture type: closed Qualified Code(s): S72.002A - Fracture of unspecified part of neck of left femur, initial encounter for closed fracture (2) Fall Priority: Secondary Status: Acute Qualifiers: Encounter type: initial encounter Qualified Code(s): W19.XXXA - Unspecified fall, initial encounter (3) Atrial fibrillation Priority: Secondary Status: Chronic Qualifiers: Atrial fibrillation type: unspecified Qualified Code(s): I48.91 - Unspecified atrial fibrillation (4) Pacemaker Priority: Secondary Status: Chronic (5) Rheumatoid arthritis Priority: Secondary Status: Chronic Qualifiers: Rheumatoid arthritis location: unspecified site Rheumatoid factor presence: unspecified presence Qualified Code(s): M06.9 - Rheumatoid arthritis, unspecified (6) Hypothyroid Priority: Secondary Status: Chronic Qualifiers: Hypothyroidism type: unspecified Qualified Code(s): E03.9 - Hypothyroidism, unspecified Hospital course: Ms. Pablo is a 73 year old female with past medical history of atrial fibrillation status post ablation and pacemaker, GERD, hypertension, osteoporosis, rheumatoid arthritis, hypothyroidism who presented to the emergency department after a mechanical fall. Patient states that she tripped over her shoes and landed on her hip with immediate pain. She is presenting from [facility] in [place], [place]. Workup at outside hospital shows CT of the left hip with nondisplaced subcapital fracture of the left femoral neck. Vital signs on presentation were significant for a blood pressure 178/76. Laboratory results show subtherapeutic INR at 1.4, patient is on home Coumadin for atrial fibrillation. Cardiology did evaluate the patient for perioperative risk assessment and determined that she is intermediate risk and that Coumadin could be held with a Lovenox bridge following her surgery. Patient did tolerate the procedure well on 09/21/18 involving left hip percutaneous pinning. She has been working with physical and occupational therapy who was recommended long term facility for rehabilitation. Her pain has been tolerated well and she is no evidence of complication. Her wound is clean, dry, intact without any evidence of bleed or infection. Her labs have remained stable. She was discharged to long term facility in stable medical condition and instructed follow up with orthopedic surgery. She will need a repeat INR as she is purging from Lovenox to Coumadin in approximately 2 days. All questions were answered Discharge discussed with: patient, social work, case management - Time Spent with Patient Total time spent providing and/or coordinating discharge services: - Discharge Medications Prescriptions: New Cyclobenzaprine [Flexeril] 5 mg PO TID PRN #10 tablet PRN Reason: spasms Enoxaparin [Lovenox] 60 mg SQ Q12HCO #10 syringe HYDROcodone/Acet 7.5/325 mg [[place] 7.5-325 mg] 1 tab PO Q4H PRN 2 Days #10 tablet PRN Reason: Severe Pain Continued Nitroglycerin 0.4 mg SL Q5MIN PRN PRN Reason: Chest Pain Levothyroxine [Synthroid] 50 mcg PO QAM Fluticasone Propionate Nasal [Flonase] 1 spray NS DAILY Warfarin [Coumadin] 6 mg PO SUTUTH Azathioprine [Imuran] 50 mg PO TID Leflunomide [Arava] 10 mg PO DAILY Alendronate Sodium 70 mg PO SA Diltiazem HCl [Tiazac] 360 mg PO DAILY Metoprolol Tartrate 100 mg PO BID Omeprazole [PriLOSEC] 20 mg PO DAILY Pramipexole [Mirapex] 0.25 mg PO HS predniSONE [PredniSONE] 5 mg PO DAILY Trazodone HCl 50 mg PO HS Warfarin Sodium 4 mg PO MOWEFRSA Home Medications: Azathioprine [Imuran] 50 mg PO TID 02/14/16 [History] Fluticasone Propionate Nasal [Flonase] 1 spray NS DAILY 02/14/16 [History] Leflunomide [Arava] 10 mg PO DAILY 02/14/16 [History] Levothyroxine [Synthroid] 50 mcg PO QAM 02/14/16 [History] Nitroglycerin 0.4 mg SL Q5MIN PRN 02/14/16 [History] Warfarin [Coumadin] 6 mg PO SUTUTH 02/14/16 [History] Alendronate Sodium 70 mg PO SA 09/20/18 [History] Diltiazem HCl [Tiazac] 360 mg PO DAILY 09/20/18 [History] Metoprolol Tartrate 100 mg PO BID 09/20/18 [History] Omeprazole [PriLOSEC] 20 mg PO DAILY 09/20/18 [History] Pramipexole [Mirapex] 0.25 mg PO HS 09/20/18 [History] Trazodone HCl 50 mg PO HS 09/20/18 [History] Warfarin Sodium 4 mg PO MOWEFRSA 09/20/18 [History] predniSONE [PredniSONE] 5 mg PO DAILY 09/20/18 [History] Cyclobenzaprine [Flexeril] 5 mg PO TID PRN #10 tablet 09/23/18 [Rx] Enoxaparin [Lovenox] 60 mg SQ Q12HCO #10 syringe 09/23/18 [Rx] HYDROcodone/Acet 7.5/325 mg [[place] 7.5-325 mg] 1 tab PO Q4H PRN 2 Days #10 tablet 09/23/18 [Rx] Allergies/Adverse Reactions: Allergy/AdvReac Type Severity Reaction Status Date / Time azithromycin [From Zithromax] AdvReac See Verified 07/12/18 13:08 Comments codeine AdvReac See Verified 07/12/18 13:08 Comments dimethicone [From Dermatix] AdvReac See Verified 07/12/18 13:08 Comments levofloxacin [From Levaquin] AdvReac See Verified 07/12/18 13:08 Comments oxycodone [From Percocet] AdvReac See Verified 07/12/18 13:08 Comments Penicillins AdvReac See Verified 07/12/18 13:08 Comments pentazocine [From Talwin] AdvReac See Verified 07/12/18 13:08 Comments propoxyphene [From Darvon] AdvReac See Verified 07/12/18 13:08 Comments silicon dioxide AdvReac See Verified 07/12/18 13:08 [From Dermatix] Comments Date of admission: 09/20/18 12:18 Primary care physician: PCP NONE Consults: 09/20/18 00:20 Consult to Nutrition [CONS] Routine Comment: Consulting Provider: NUTRITION Reason for Dietary Consult: MST Score Consult to Pastoral Services [CONS] Routine Comment: Consult to Secondary Set Up Man [CONS] Routine Reason for SW Consult: d/c planning 09/20/18 05:36 Consult to Orthopedic Surgery [CONS] Routine Consulting Provider: [facility] Reason for Consult: Mechanical fall at home, CT of left hip shows nondisplaced subcapital fracture of the left femoral neck. Xray of left hip shows no acute fracture. Sending facility consulted with automation technologist orthopedic surgery who agreed to see patient in consult. Call Completed: No 09/20/18 05:38 Consult to Cardiology [CONS] Routine Comment: Consulting Provider: [facility] Reason for Consult: Will need cardiac clearance for surgery. Follows regularly with [facility]. Has history of atrial fibrillation and pacemaker for what she describes as "pauses". Call Completed: No 09/21/18 09:53 Consult to Occupational Therapy [CONS] Routine Comment: Evaluate, develop and implement POC Reason for Consult: post hip surgery Does patient have active BEDREST order?: No Is patient medically & hemodynamically stable?: Yes Consult to Orthopedic Navigator [CONS] [CONS] Routine Consult to Physical Therapy [CONS] Routine Comment: Evaluate, develop and implement POC Reason for Consult: post hip surgery Does patient have active BEDREST order?: No Is patient medically & hemodynamically stable?: Yes Consult to Secondary Set Up Man [CONS] Routine Reason for SW Consult: post -op hip fracture RT Post Op Consult [CONS] Routine Discharging clinician: Jose Marshall Anticipated date of discharge: 09/23/18 - Constitutional Vitals: Temp Pulse Resp BP Pulse Ox 97.7 F 60 16 174/91 93 09/23/18 07:13 09/23/18 07:13 09/23/18 07:13 09/23/18 07:13 09/23/18 07:13 General appearance: Present: A&O X 3 Exam: Gen.: Vitals noted. No acute distress. AAOx3, resting comfortably in bed. HEENT: PERRL/EOMI, oropharynx clear, Normocephalic, atraumatic, MMM Cardiac: RRR, no murmur, +S1/S2, No BLE edema Pulmonary: CTA bilaterally, no wheezes, rales or rhonchi, equal chest expansion, unlabored breathing Abdomen: soft, nontender, BS noted, no guarding, no palpable HSM Skin: warm and dry, no visible lesions. No visible lesion around hip, no ecchymosis. Incision is clean and dry with no obvious areas of drainage, or bleeding. MSK: ROM intact, no joint swelling noted, gait no assessed while in bed. Non tender calf or clubbing. Distal pulses present Neuro: A&Ox3, moves all extremities, no focal deficits, sensation intact Psych: Appropriate mood and behavior, AOx3 - Patient Status Disposition: Transfer SNF Condition: Good Functional capacity at discharge: uses cane/walker Overall status at discharge: patient is progressing back to baseline - Ambulatory Orders Ambulatory Orders: Prothrombin Time INR [COAG] Time Frame: 2 Days, Facility: [facility], Location: Lab - Discharge Instructions Follow Up With: Emanuel Kolb MD [Non-Partnered Physician] - 10/06/18 9:20 am Additional Instructions: Discharge Instructions: Total Hip Replacement Please call [facility] ([phone]), your Primary Care Physician, or report to the Emergency Room if you have any of the following symptoms: Nausea, vomiting, fever greater that 101.5, swelling, chest pain, shortness of breath, increased pain/redness/drainage/odor for your incision site, numbness/tingling, or any other concerning symptoms. ACTIVITY:Weight-bearing as tolerated for 8 weeks with hip dislocation precautions that physical therapy taught you. You may progress as tolerated under the guidance of your physical therapist. You do not need to sleep with a pillow between your legs. You can also seep on the operative side or on your stomach. Incentive Spirometer 10 times an hour. MEDICATIONS: Upon discharge resume your home medications. Take all the medications as prescribed. Take a stool softener if taking narcotic pain medications. Stool softeners are only effective if you drink enough fluids. Drink 6-8 glass of water or fluids a day, unless this is not allowed for another health problem. Despite using stool softeners, if you haven't had a bowel movement in 3 days, please switch to a gentle laxative. Gentle laxatives are sold over the counter. You should have a bowel movement within 24 hours, if not call the office. You will be discharged from the hospital with a prescription for pain medication. You are encouraged to decrease the use of narcotic pain medication as tolerated. Should you require a refill, please call the office. [facility] prescribes narcotic pain medication for only 4-6 weeks after surgery. If you require pain medication beyond this time period, you may be referred to your Primary Care Physician or to the Pain Clinic for further evaluation. Plan ahead for refills on pain medication as many narcotics either need to be picked up at the office or mailed. It is best to call 48-72 hours in advance of needing a prescription refill so you don't run out of medication. To help control the post-operative pain, you may take NSAIDs (Aleve,Advil, Motrin, ibuprofen, naprosyn) or Tylenol as prescribed on the bottle in addition to the pain medication. ANTICOAGULATION (blood thinners): Continue your Aspirin, Lovenox or Coumadin as prescribed to help prevent a blood clot in the leg or in the lungs. As long as your incision remains dry and you tolerate the NSAIDs (Aleve, Advil, Motrin, Ibuprofen, Naprosyn), it is OK to use the NSAIDS while you are taking your anticoagulation medication. Should your incision start to drain, stop the NSAID and contact our office. Common symptoms of blood clot in the legs include: localized pain, swelling, calf tenderness, redness or discoloration of the skin. Blood clot in the lung symptoms include: shortness of breath, rapid pulse, sweating, and chest pain that worsens with deep breathing, coughing up blood, lightheadedness, feelings of anxiety. If you experience any of these symptoms notify your physician immediately, go to the emergency room, or if having trouble breathing, call 911. WOUND CARE: Leave the dressing on for 7 to 10days. You may change the dressing if it is saturated greater than 50%. Do not get the dressing wet at anytime. Wash your hands with antibacterial soap, rinse and dry prior to any wound care. If you have lul the visiting nurse or rehab facility can remove the stapes 10-14 days after surgery and place steri-strips across the wound. Leave the steri-strips in place until they fall off on their own. You may let water from the shower run on top of the steri-strips. If you do not have a visiting nurse or rehab facility, you will need to return to the office at 10-14 days for the lul to be removed. If you have itching or redness around the dressing call the office. FOLLOW-UP: Please follow up with your surgeon in the orthopedic clinic in 6 weeks from the day of surgery. If you have lul that need to be removed, you will need to come back to the office in 10-14 days from the day of surgery. - Diet and Activity Activity: as per physical therapy, increase activity as tolerated, resume usual activities as tolerated Diet: low fat, low cholesterol - VTE Documentation of Mechanical Device: Intermittent pneumatic compression device <Belkis Piper - Last Filed: 09/23/18 14:31> Orders not resulted at time of discharge: Pending orders 09/21/18 XR hip complete LT [XR] Routine 09/24/18 04:00 PT/INR [Prothrombin Time INR] [COAG] AM 0400 09/25/18 04:00 PT/INR [Prothrombin Time INR] [COAG] AM 0400 09/26/18 04:00 PT/INR [Prothrombin Time INR] [COAG] AM 0400 09/27/18 04:00 PT/INR [Prothrombin Time INR] [COAG] AM 0400 Date of Encounter: 09/23/18 - Discharge Diagnosis (1) Fall Status: Acute Qualifiers: Encounter type: initial encounter Qualified Code(s): W19.XXXA - Unspecified fall, initial encounter (2) Fracture of femoral neck, left Status: Acute Qualifiers: Encounter type: initial encounter Fracture type: closed Qualified Code(s): S72.002A - Fracture of unspecified part of neck of left femur, initial encounter for closed fracture (3) Atrial fibrillation Status: Chronic Qualifiers: Atrial fibrillation type: unspecified Qualified Code(s): I48.91 - Unspecified atrial fibrillation (4) Pacemaker Status: Chronic (5) Rheumatoid arthritis Status: Chronic Qualifiers: Rheumatoid arthritis location: unspecified site Rheumatoid factor presence: unspecified presence Qualified Code(s): M06.9 - Rheumatoid arthritis, unspecified (6) Hypothyroid Status: Chronic Qualifiers: Hypothyroidism type: unspecified Qualified Code(s): E03.9 - Hypothyroidism, unspecified Hospital course: Ms. Pablo is a 73 year old female - Time Spent with Patient Total time spent providing and/or coordinating discharge services: Time spent: Less than 30 minutes (25 min) Date of admission: 09/20/18 12:18 Primary care physician: PCP NONE Consults: 09/20/18 00:20 Consult to Nutrition [CONS] Routine Comment: Consulting Provider: NUTRITION Reason for Dietary Consult: MST Score Consult to Pastoral Services [CONS] Routine Comment: Consult to Secondary Set Up Man [CONS] Routine Reason for SW Consult: d/c planning 09/20/18 05:36 Consult to Orthopedic Surgery [CONS] Routine Consulting Provider: [facility] Reason for Consult: Mechanical fall at home, CT of left hip shows nondisplaced subcapital fracture of the left femoral neck. Xray of left hip shows no acute fracture. Sending facility consulted with automation technologist orthopedic surgery who agreed to see patient in consult. Call Completed: No 09/20/18 05:38 Consult to Cardiology [CONS] Routine Comment: Consulting Provider: [facility] Reason for Consult: Will need cardiac clearance for surgery. Follows regularly with [facility]. Has history of atrial fibrillation and pacemaker for what she describes as "pauses". Call Completed: No 09/21/18 09:53 Consult to Occupational Therapy [CONS] Routine Comment: Evaluate, develop and implement POC Reason for Consult: post hip surgery Does patient have active BEDREST order?: No Is patient medically & hemodynamically stable?: Yes Consult to Orthopedic Navigator [CONS] [CONS] Routine Consult to Physical Therapy [CONS] Routine Comment: Evaluate, develop and implement POC Reason for Consult: post hip surgery Does patient have active BEDREST order?: No Is patient medically & hemodynamically stable?: Yes Consult to Secondary Set Up Man [CONS] Routine Reason for SW Consult: post -op hip fracture RT Post Op Consult [CONS] Routine - Constitutional Vitals: Temp Pulse Resp BP Pulse Ox 99.3 F 57 15 151/77 94 09/23/18 11:16 09/23/18 11:16 09/23/18 11:16 09/23/18 11:16 09/23/18 11:16 - Attending Attestation I examined this patient and my medical decision-making was reviewed with the Resident Physician Dr Marshall. I agree with the documented findings, disposition and treatment plan as described except to the extent set forth below. Ms Pablo is admitted with hip fracture requiring surgical intervention. She remains medically stable for dispo to rehab. awake, no family present. feeling well. no palpitations. no bleeding. hip pain tolerable. eating/drinking/urinating + flatus and no abd pain. Discussed discharge plan and all questions answered gen- alert, awake,appears stated age cv- reg rate and rhythm, no le edema lungs- ctabl, normal resp effort RA skin- left hip dressing, c/d/i no ecchymosis, no pallor neuro- AAOx3, Left Hip fracture s/p hip pinning 09/21 -WBAT -prn pain control,dispo to rehab Afib on coumadin Subtherapeutic INR 1.4 -lovenox bridge to therapeutic warfarin to cont at rehab -cont home BB + cardizem -INR check 2 days HTN-stable with home meds (early am checks routinely elevated before med pass then controlled with home meds), cont home meds, fu outpt RA- [facility] home med regimen on dc further diagnoses and plan as noted by resident time spent on dc 25 min
[2018-09-23] MEDS: predniSONE 5 MG TABLET PO SCH (07:50)
[2018-09-23] MEDS: Diltiazem CD (24hr) 180 MG CAPSULE PO SCH (07:50)
[2018-09-23] MEDS: Metoprolol 100 MG TABLET PO SCH (07:50)
[2018-09-23] MEDS: Leflunomide [Arava] 10 MG PO SCH (07:51)
[2018-09-23] MEDS: Fluticasone Propionate Nasal 50 MCG/SPRAY BOTTLE NS SCH (07:51)
[2018-09-23 11:21] VITALS: BP 151/77
--- NOTE | 2018-09-23 12:41 | Physician Discharge Referral ---
<Jose Marshall - Last Filed: 09/23/18 13:34> ExtendedCare Referral Info Provider in Charge after Transfer: PCP Institutional Level of Care: Skilled - Diagnosis (1) Fracture of femoral neck, left Priority: Primary Status: Acute (2) Fall Priority: Secondary Status: Acute (3) Atrial fibrillation Priority: Secondary Status: Chronic (4) Pacemaker Priority: Secondary Status: Chronic (5) Rheumatoid arthritis Priority: Secondary Status: Chronic (6) Hypothyroid Priority: Secondary Status: Chronic - Transfer Medications Prescriptions: Cyclobenzaprine [Flexeril] 5 mg PO TID PRN #10 tablet PRN Reason: spasms Enoxaparin [Lovenox] 60 mg SQ Q12HCO #10 syringe HYDROcodone/Acet 7.5/325 mg [[place] 7.5-325 mg] 1 tab PO Q4H PRN 2 Days #10 tablet PRN Reason: Severe Pain Home Medications: Azathioprine [Imuran] 50 mg PO TID 02/14/16 [History] Fluticasone Propionate Nasal [Flonase] 1 spray NS DAILY 02/14/16 [History] Leflunomide [Arava] 10 mg PO DAILY 02/14/16 [History] Levothyroxine [Synthroid] 50 mcg PO QAM 02/14/16 [History] Nitroglycerin 0.4 mg SL Q5MIN PRN 02/14/16 [History] Warfarin [Coumadin] 6 mg PO SUTUTH 02/14/16 [History] Alendronate Sodium 70 mg PO SA 09/20/18 [History] Diltiazem HCl [Tiazac] 360 mg PO DAILY 09/20/18 [History] Metoprolol Tartrate 100 mg PO BID 09/20/18 [History] Omeprazole [PriLOSEC] 20 mg PO DAILY 09/20/18 [History] Pramipexole [Mirapex] 0.25 mg PO HS 09/20/18 [History] Trazodone HCl 50 mg PO HS 09/20/18 [History] Warfarin Sodium 4 mg PO MOWEFRSA 09/20/18 [History] predniSONE [PredniSONE] 5 mg PO DAILY 09/20/18 [History] Cyclobenzaprine [Flexeril] 5 mg PO TID PRN #10 tablet 09/23/18 [Rx] Enoxaparin [Lovenox] 60 mg SQ Q12HCO #10 syringe 09/23/18 [Rx] HYDROcodone/Acet 7.5/325 mg [[place] 7.5-325 mg] 1 tab PO Q4H PRN 2 Days #10 tablet 09/23/18 [Rx] Allergies/Adverse Reactions: Allergy/AdvReac Type Severity Reaction Status Date / Time azithromycin [From Zithromax] AdvReac See Verified 07/12/18 13:08 Comments codeine AdvReac See Verified 07/12/18 13:08 Comments dimethicone [From Dermatix] AdvReac See Verified 07/12/18 13:08 Comments levofloxacin [From Levaquin] AdvReac See Verified 07/12/18 13:08 Comments oxycodone [From Percocet] AdvReac See Verified 07/12/18 13:08 Comments Penicillins AdvReac See Verified 07/12/18 13:08 Comments pentazocine [From Talwin] AdvReac See Verified 07/12/18 13:08 Comments propoxyphene [From Darvon] AdvReac See Verified 07/12/18 13:08 Comments silicon dioxide AdvReac See Verified 07/12/18 13:08 [From Dermatix] Comments - Respiratory Orders Smoking Cessation: Smoking cessation has been advised. For more information, call the [employer] Line at 6-967-JGHT-NOW. - Advance Directives Code Status: Full Code - Mobility Orders Ambulate - Rehabiliation Orders Rehab Orders: Evaluation for Physical Therapy, Evaluation for Occupational Therapy - Diet Orders Cardiac CERTIFICATION: I certify that the transfer of the above named patient to an Extended Care Facility is necessary for the continuing treatment of the diagnosis listed. The above information is true and accurate reflection of patient's current condition. Confidential - Redisclosure prohibited without a patient's written consent. <Belkis Piper - Last Filed: 09/23/18 14:32> - Diagnosis (1) Fall Status: Acute (2) Fracture of femoral neck, left Status: Acute (3) Atrial fibrillation Status: Chronic (4) Pacemaker Status: Chronic (5) Rheumatoid arthritis Status: Chronic (6) Hypothyroid Status: Chronic - Respiratory Orders None Smoking Cessation: Smoking cessation has been advised. For more information, call the [place] [employer] Quit Line at 5-127-GOKY-NOW. - Lab Orders Lab Orders: Other (include drug levels w/frequency) (INR 09/25 goal 2-3) - Ancillary Orders May use pressure relief devices daily prn - Treatments Skin tear care topically daily PRN per policy CERTIFICATION: I certify that the transfer of the above named patient to an Extended Care Facility is necessary for the continuing treatment of the diagnosis listed. The above information is true and accurate reflection of patient's current condition. Confidential - Redisclosure prohibited without a patient's written consent.
[2018-09-23] MEDS ORDERED: *HR* Warfarin 3 MG TABLET PO ONE (18:00)
[2018-09-27] MEDS ORDERED: NON-FORMULARY MEDICATION 1 EACH EACH (Alendronate Sodium 70 MG) PO SCH (09:31)
== END 2018-09-23 14:37 | DRG 481 ==
LOC: 3NENU → SUATTDRO 23:15
PROVIDERS: ADMIT Internal Medicine; ATTEND Internal Medicine

== ENCOUNTER 2019-05-04 16:18 | Inpatient (IN) ==
[2019-05-04] MEDS ORDERED: *HR* FentaNYL (PF) 100 MCG/2 ML VIAL IVP ONE ×2 (16:24→18:29)
[2019-05-04] MEDS ORDERED: 0.9 % Sodium Chloride 500 ML IVC ONE (16:25)
[2019-05-04] MEDS ORDERED: Isovue-370 500 ML BOTTLE IVP ONE (16:31)
[2019-05-04 16:56] LABS: Basophils % 0.6 %; Eosinophils % 0.6 %; Hematocrit 41.6 % (35.3-44.9); Hemoglobin 13.5 g/dL (11.5-15.4); Immature Granulocytes % 0.4 % (0-4); Lymphocytes # 0.3 K/mcL (0.6-4.6); Lymphocytes % 5.6 %; Mean Corpuscular HGB Conc 32.5 g/dL (31.6-35.5); Mean Corpuscular Hemoglobin 30.9 pg (28.0-33.3); Mean Corpuscular Volume 95.2 fL (83.0-100.0); Mean Platelet Volume 9.5 fL (9.4-12.4); Monocytes # 0.7 K/mcL (0.0-1.3); Monocytes % 12.9 %; Neutrophils # 4.3 K/mcL (1.6-8.9); Platelet Count 293 K/mcL (140-400); Red Blood Count 4.37 M/mcL (3.82-4.97); Red Cell Distribution Width 13.8 % (11.5-14.5); Segmented Neutrophils % 79.9 %; White Blood Count 5.4 K/mcL (4.3-11.1)
[2019-05-04 17:23] LABS: Alanine Aminotransferase 23 Units/L (7-52); Albumin 3.8 g/dL (3.5-5.7); Albumin/Globulin Ratio 1.5 (1.1-2.2); Alkaline Phosphatase 60 Units/L (34-104); Aspartate Amino Transferase 33 Units/L (13-39); BUN/Creatinine Ratio 15 (6-26); Bilirubin,Direct 0.2 mg/dL (0.0-0.2); Bilirubin,Indirect 0.9 mg/dL (0.0-1.0); Bilirubin,Total 1.1 mg/dL (0.3-1.0); Blood Urea Nitrogen 9 mg/dL (8-23); Calcium 9.4 mg/dL (8.6-10.3); Carbon Dioxide 23 mEq/L (23-29); Chloride 102 mEq/L (98-107); Globulin 2.6 g/dL (2.4-3.5); Glucose 93 mg/dL (70-105); Lipase < 3 Units/L (11-82); Osmolality,Calculated 284 (280-300); Potassium 3.8 mEq/L (3.5-5.1); Sodium 138 mEq/L (136-145); Total Protein 6.4 g/dL (6.4-8.9); Troponin I < 0.03 ng/mL (< 0.04); eGFR For African Americans > 60 (> 60); eGFR For Non-African Americans > 60 (> 60)
[2019-05-04 18:45] LABS: Bilirubin,Urine Negative (Negative); Blood,Urine Negative (Negative); Clarity,Urine Clear (Clear); Color,Urine Yellow (Yellow); Glucose,Urine (UA) Normal (Normal); Ketones,Urine 80 mg/dL (Negative); Leukocyte Esterase,Urine Negative (Negative); Nitrite,Urine Negative (Negative); Protein,Urine Negative (Neg-Trace); Specific Gravity,Urine > 1.030 (1.010-1.025); Urobilinogen,Urine Normal (Normal)
[2019-05-04 20:17] LABS: INR 5.8; Prothrombin Time 65.9 Seconds (9.4-12.1)
[2019-05-04] MEDS ORDERED: 0.9 % Sodium Chloride 1,000 ML IVC SCH (22:00)
[2019-05-04] MEDS ORDERED: Naloxone 0.4 MG/ML INJ IVP PRN (22:00)
[2019-05-05] MEDS ORDERED: Nitroglycerin 0.4 MG TAB.SUBL SL PRN (00:49)
[2019-05-05] MEDS ORDERED: Acetaminophen IV 1,000 MG/100 ML INFUS..BTL IVPB ONE (00:54)
[2019-05-05] MEDS: traZODone 50 MG TABLET PO SCH ×2 (01:18→20:37)
[2019-05-05] MEDS: Gabapentin 300 MG CAPSULE PO SCH ×3 (01:18→20:36)
[2019-05-05] MEDS: Diltiazem CD (24hr) 180 MG CAPSULE PO SCH (09:15)
[2019-05-05 09:59] LABS: Activated Partial Thrombo Time 63.7 Seconds (26.0-36.0)
[2019-05-05 10:09] LABS: Basophils % 0.6 %; Eosinophils # 0.1 K/mcL (0.0-0.6); Eosinophils % 1.1 %; Hematocrit 41.9 % (35.3-44.9); Immature Granulocytes % 0.4 % (0-4); Lymphocytes # 0.2 K/mcL (0.6-4.6); Lymphocytes % 4.4 %; Mean Corpuscular HGB Conc 33.4 g/dL (31.6-35.5); Mean Corpuscular Hemoglobin 30.8 pg (28.0-33.3); Mean Corpuscular Volume 92.1 fL (83.0-100.0); Mean Platelet Volume 9.3 fL (9.4-12.4); Monocytes # 0.7 K/mcL (0.0-1.3); Monocytes % 13.1 %; Neutrophils # 4.4 K/mcL (1.6-8.9); Platelet Count 262 K/mcL (140-400); Red Blood Count 4.55 M/mcL (3.82-4.97); Red Cell Distribution Width 14.4 % (11.5-14.5); Segmented Neutrophils % 80.4 %; White Blood Count 5.4 K/mcL (4.3-11.1)
[2019-05-05 10:25] LABS: Alanine Aminotransferase 18 Units/L (7-52); Albumin 3.7 g/dL (3.5-5.7); Albumin/Globulin Ratio 1.4 (1.1-2.2); Alkaline Phosphatase 55 Units/L (34-104); Aspartate Amino Transferase 28 Units/L (13-39); BUN/Creatinine Ratio 18 (6-26); Blood Urea Nitrogen 9 mg/dL (8-23); Calcium 9.1 mg/dL (8.6-10.3); Carbon Dioxide 23 mEq/L (23-29); Chloride 104 mEq/L (98-107); Chol/HDL Ratio 6.7 (0-4.9); Cholesterol 182 mg/dL (< 200); Globulin 2.6 g/dL (2.4-3.5); Glucose 95 mg/dL (70-105); HDL Cholesterol 27 mg/dL (40-59); LDL Cholesterol,Calculated 136 mg/dL (0-99); Magnesium 1.7 mg/dL (1.6-2.6); Osmolality,Calculated 284 (280-300); Phosphorous 3.3 mg/dL (2.7-4.5); Potassium 3.9 mEq/L (3.5-5.1); Sodium 138 mEq/L (136-145); Total Protein 6.3 g/dL (6.4-8.9); Triglycerides 95 mg/dL (< 150); eGFR For African Americans > 60 (> 60); eGFR For Non-African Americans > 60 (> 60)
[2019-05-05 10:33] LABS: INR 5.5; Prothrombin Time 62.1 Seconds (9.4-12.1)
[2019-05-05] MEDS: predniSONE 5 MG TABLET PO SCH (10:57)
[2019-05-05] MEDS ORDERED: Morphine Sulfate 2 MG/ML SYRINGE IVP ONE (11:08)
[2019-05-05] MEDS ORDERED: Morphine Sulfate 2 MG/ML SYRINGE IVP PRN ×2 (13:24→17:20)
[2019-05-05] MEDS: Cefepime HCl 2,000 MG in Water for inj. (sterile) 20 ML IVP SCH ×2 (15:12→23:45)
[2019-05-05] MEDS: MetroNIDAZOLE 500 MG/100 ML 500 MG/100 ML BAG IVPB SCH ×2 (15:13→23:46)
[2019-05-05] MEDS ORDERED: 0.9 % Sodium Chloride 250 ML ONE (16:44)
[2019-05-05] MEDS ORDERED: Acetaminophen 325 MG TABLET PO PRN (17:10)
[2019-05-05] MEDS ORDERED: Ondansetron 4 MG/2 ML VIAL IVP PRN (17:12)
[2019-05-05] MEDS ORDERED: *HR* Promethazine 25 MG/ML VIAL IVP PRN (17:12)
[2019-05-05] MEDS ORDERED: Furosemide 40 MG/4 ML VIAL IVP ONE ×2 (17:13→23:30)
[2019-05-05] MEDS ORDERED: 0.9 % Sodium Chloride 250 ML IVC SCH (17:15)
[2019-05-05] MEDS: Mag Hydrox/Al Hydrox/Simeth 30 ML UDC PO SCH ×2 (17:18→20:36)
[2019-05-05] MEDS ORDERED: Warfarin perPT PO PRN (18:00)
[2019-05-05] MEDS: *HR* OxyCODONE Immed Rel 5 MG TABLET PO PRN (20:37)
[2019-05-06] LABS: Adenovirus F 40/41 PCR Not detected (Not detect); Astrovirus PCR Not detected (Not detect); C.difficile Toxin A/B Gene PCR Not detected (Not detect); Campylobacter by PCR Not detected (Not detect); Cryptosporidium by PCR Not detected (Not detect); Cyclospora cayetanensis PCR Not detected (Not detect); E. coli O157 by PCR Not detected (Not detect); Entamoeba histolytica PCR Not detected (Not detect); Enteroaggregative E.coli(EAEC) Not detected (Not detect); Enteropathogenic E.coli(EPEC) Not detected (Not detect); Enterotoxigenic E.coli (ETEC) Not detected (Not detect); Giardia lamblia PCR Not detected (Not detect); Norovirus GI/GII PCR Not detected (Not detect); Plesiomonas shigelloides PCR Not detected (Not detect); Rotavirus A PCR Not detected (Not detect); Salmonella PCR Not detected (Not detect); Sapovirus PCR Not detected (Not detect); Shig/EnteroinvasiveE coli EIEC Not detected (Not detect); Shigalike tox-prod E coli STEC Not detected (Not detect); Vibrio PCR Not detected (Not detect); Vibrio cholerae PCR Not detected (Not detect); Yersinia enterocolitica PCR Not detected (Not detect)
[2019-05-06] MEDS: *HR* OxyCODONE Immed Rel 5 MG TABLET PO PRN ×2 (02:59→09:09)
[2019-05-06] MEDS ORDERED: Dextrose Gel 15 GM/37.5 ML TUBE PO PRN ×2 (06:12)
[2019-05-06] MEDS ORDERED: D5% in Water 1,000 ML IVC PRN (06:12)
[2019-05-06] MEDS ORDERED: *HR* Dextrose 50 % in Water (Syg) 50 ML SYRINGE IVP PRN (06:12)
[2019-05-06] MEDS: Diltiazem CD (24hr) 180 MG CAPSULE PO SCH (09:09)
[2019-05-06] MEDS: predniSONE 5 MG TABLET PO SCH (09:09)
[2019-05-06] MEDS: Cefepime HCl 2,000 MG in Water for inj. (sterile) 20 ML IVP SCH ×2 (09:10→16:26)
[2019-05-06] MEDS: MetroNIDAZOLE 500 MG/100 ML 500 MG/100 ML BAG IVPB SCH ×2 (09:11→16:27)
[2019-05-06] MEDS: Gabapentin 300 MG CAPSULE PO SCH (09:19)
[2019-05-06] MEDS: Mag Hydrox/Al Hydrox/Simeth 30 ML UDC PO SCH ×3 (09:28→17:10)
[2019-05-06 11:04] LABS: Basophils % 0.3 %; Eosinophils # 0.1 K/mcL (0.0-0.6); Eosinophils % 2.7 %; Hematocrit 37.4 % (35.3-44.9); Hemoglobin 12.8 g/dL (11.5-15.4); Immature Granulocytes % 0.5 % (0-4); Lymphocytes # 0.3 K/mcL (0.6-4.6); Lymphocytes % 6.7 %; Mean Corpuscular HGB Conc 34.2 g/dL (31.6-35.5); Mean Corpuscular Hemoglobin 31.1 pg (28.0-33.3); Mean Corpuscular Volume 90.8 fL (83.0-100.0); Mean Platelet Volume 9.4 fL (9.4-12.4); Monocytes # 0.4 K/mcL (0.0-1.3); Monocytes % 11.3 %; Neutrophils # 2.9 K/mcL (1.6-8.9); Platelet Count 246 K/mcL (140-400); Red Blood Count 4.12 M/mcL (3.82-4.97); Red Cell Distribution Width 14.2 % (11.5-14.5); Segmented Neutrophils % 78.5 %; White Blood Count 3.7 K/mcL (4.3-11.1)
[2019-05-06 11:06] LABS: INR 1.1; Prothrombin Time 12.1 Seconds (9.4-12.1)
[2019-05-06 11:14] LABS: BUN/Creatinine Ratio 30 (6-26); Blood Urea Nitrogen 13 mg/dL (8-23); Carbon Dioxide 27 mEq/L (23-29); Chloride 97 mEq/L (98-107); Glucose 83 mg/dL (70-105); Osmolality,Calculated 289 (280-300); Potassium 3.3 mEq/L (3.5-5.1); Sodium 140 mEq/L (136-145); eGFR For African Americans > 60 (> 60); eGFR For Non-African Americans > 60 (> 60)
[2019-05-06] MEDS ORDERED: Morphine Sulfate 2 MG/ML SYRINGE IVP ONE (14:32)
[2019-05-06] MEDS ORDERED: Morphine Sulfate 2 MG/ML SYRINGE IVP PRN ×2 (16:35→21:15)
[2019-05-06] MEDS ORDERED: *HR* Succinylcholine 200 MG/10 ML VIAL IVP ONE (16:48)
[2019-05-06] MEDS ORDERED: Lidocaine -MPF 4% 5 ML AMPUL ONE (16:48)
[2019-05-06] MEDS ORDERED: *HR* Rocuronium Bromide 50 MG/5 ML VIAL ONE (16:48)
[2019-05-06] MEDS ORDERED: *HR* FentaNYL (PF) 100 MCG/2 ML VIAL ONE (16:48)
[2019-05-06] MEDS ORDERED: Lidocaine -MPF 2% 2 ML VIAL ONE (16:48)
[2019-05-06] MEDS ORDERED: *HR* Midazolam HCl 2 MG/2 ML VIAL ONE (16:49)
[2019-05-06] MEDS ORDERED: *HR* Propofol 200 MG/20 ML VIAL IVP ONE (16:49)
[2019-05-06] MEDS ORDERED: Isovue-300 50ML VIAL ONE (18:06)
[2019-05-06] MEDS ORDERED: Bupivacaine/EPI 1:200k 0.25%PF 30 ML VIAL ONE (18:06)
[2019-05-06] MEDS ORDERED: Acetaminophen IV 1,000 MG/100 ML INFUS..BTL ONE (18:35)
[2019-05-06] MEDS ORDERED: EPHEDrine 50 MG/ML VIAL ONE (18:59)
[2019-05-06] MEDS ORDERED: Albumin Human 5% 25.0 GM/500 ML VIAL ONE (18:59)
[2019-05-06] MEDS ORDERED: Ringers Solution, Lactated 500 ML IVC ONE (20:04)
[2019-05-06] MEDS ORDERED: 0.9 % Sodium Chloride 500 ML ONE (20:19)
[2019-05-06] MEDS ORDERED: Ondansetron 4 MG/2 ML VIAL IVP PRN (21:15)
[2019-05-06] MEDS ORDERED: *HR* Promethazine 25 MG/ML VIAL IVP PRN (21:15)
[2019-05-06] MEDS ORDERED: Acetaminophen 325 MG TABLET PO PRN (21:15)
[2019-05-06] MEDS ORDERED: Nitroglycerin 0.4 MG TAB.SUBL SL PRN (21:15)
[2019-05-06] MEDS ORDERED: Ringers Solution, Lactated 1,000 ML IVC SCH (21:15)
[2019-05-06] MEDS ORDERED: Naloxone 0.4 MG/ML INJ IVP PRN (21:15)
[2019-05-07 07:09] LABS: Hematocrit 34.2 % (35.3-44.9); Hemoglobin 11.5 g/dL (11.5-15.4); Lymphocytes # 0.1 K/mcL (0.6-4.6); Mean Corpuscular HGB Conc 33.6 g/dL (31.6-35.5); Mean Corpuscular Hemoglobin 31.5 pg (28.0-33.3); Mean Corpuscular Volume 93.7 fL (83.0-100.0); Mean Platelet Volume 9.9 fL (9.4-12.4); Platelet Count 219 K/mcL (140-400); Red Blood Count 3.65 M/mcL (3.82-4.97); Red Cell Distribution Width 14.1 % (11.5-14.5)
[2019-05-07 07:12] LABS: INR 1.2; Prothrombin Time 13.2 Seconds (9.4-12.1)
[2019-05-07 07:31] LABS: BUN/Creatinine Ratio 36 (6-26); Blood Urea Nitrogen 14 mg/dL (8-23); Calcium 9.5 mg/dL (8.6-10.3); Carbon Dioxide 21 mEq/L (23-29); Chloride 102 mEq/L (98-107); Glucose 134 mg/dL (70-105); Osmolality,Calculated 286 (280-300); Sodium 137 mEq/L (136-145); eGFR For African Americans > 60 (> 60); eGFR For Non-African Americans > 60 (> 60)
[2019-05-07] MEDS: *HR* OxyCODONE Immed Rel 5 MG TABLET PO PRN ×2 (08:31→14:21)
[2019-05-07] MEDS: Diltiazem CD (24hr) 180 MG CAPSULE PO SCH (08:31)
[2019-05-07] MEDS: Gabapentin 300 MG CAPSULE PO SCH ×3 (08:32→20:56)
[2019-05-07] MEDS: predniSONE 5 MG TABLET PO SCH (08:32)
[2019-05-07 09:17] LABS: Monocytes # 0.1 K/mcL (0.0-1.3); Neutrophils # 3.8 K/mcL (1.6-8.9)
[2019-05-07 09:18] LABS: Platelet Estimate Normal (Normal)
[2019-05-07] MEDS: Mag Hydrox/Al Hydrox/Simeth 30 ML UDC PO SCH (19:32)
[2019-05-07] MEDS: traZODone 50 MG TABLET PO SCH (19:33)
[2019-05-07] MEDS ORDERED: traZODone 50 MG TABLET PO SCH (21:00)
[2019-05-08 04:57] LABS: INR 1.1; Prothrombin Time 12.3 Seconds (9.4-12.1)
[2019-05-08] MEDS: Gabapentin 300 MG CAPSULE PO SCH (08:59)
[2019-05-08] MEDS: predniSONE 5 MG TABLET PO SCH (08:59)
[2019-05-08] MEDS: Diltiazem CD (24hr) 180 MG CAPSULE PO SCH (08:59)
[2019-05-08 17:24] VITALS: BP 160/82
[2019-05-08] MEDS ORDERED: *HR* Warfarin 4 MG TABLET PO ONE (18:00)
[2019-05-08] MEDS ORDERED: Warfarin perPT PO PRN (18:00)
== END 2019-05-08 17:25 | disposition home or self-care (01) | DRG 418 ==
LOC: EMEROOARM 16:18 → CDU 16:18 → SUATTDRO 05-05 00:18 → CDU 05-05 00:39 → 3ANU 05-05 14:21
PROVIDERS: ADMIT Internal Medicine; ATTEND Internal Medicine